=== PATIENT | male | born 1960 | race Two or more races ===

== ENCOUNTER 2017-09-25 01:57 | Inpatient (IN) | payer MEDICARE, MEDICAID ==
[2017-09-25] MEDS ORDERED: Haloperidol Lactate 5 mg/mL 1mL Vial ONE ×2 (02:37→13:33)
[2017-09-25] MEDS ORDERED: Haloperidol Lactate 5 mg/mL 1mL Vial IM STA (02:57)
--- NOTE | 2017-09-25 04:12 | ED Physician Chart ---
ED Chief Complaint/HPI - Patient Information Date Seen:: 09/25/17 Time Seen:: 03:00 History of Present Illness:: Pt sent for agitation, combatant in ER requiring leather restraint as well as rx haldol Allergies:: Allergies Allergy/AdvReac Type Severity Reaction Status Date / Time No Known Allergies Allergy Verified 09/25/17 02:48 Vitals:: Vital Signs - 8 hr 09/25/17 09/25/17 02:20 02:44 Temp 97.6 F 97.6 F HR 88 86 RR 19 18 BP 96/61 96/61 O2 Sat % 97 98 Historian:: EMS, Medical Records Review:: Nurse's Note Reviewed, EMS run form Reviewed, Transfer documents Reviewed, Patient unable to respond ED Review of Systems - Review of Systems General/Constitutional: No fever (unreliable hx) Skin: No skin lesions Head: No headache Eyes: No loss of vision ENT: No earache Neck: No swelling Cardio Vascular: No palpitations, No edema GI: No vomiting Psychiatric: Prior psych history, Auditory hallucination, Visual hallucination ED Past Medical History - Past Medical History Past Medical History: Dementia Psychiatricy History: Schizophrenia, Dementia Family Medical History - Family Member Mother History Unknown: Yes ED Physical Exam - Physical Examination General/Constitutional: Well-developed, well-nourished Head: Atraumatic Eyes: Lids, conjuctiva normal Skin: Nl inspection ENMT: External ears, nose nl Neck: Nontender Respiratory: Nl effort/Exclusion Cardio Vascular: RRR GI: No tenderness/rebounding/guarding : No CVA tenderness Extremities: No edema Misc: Normal back ED Assessment - Assessment General Assessment: acute psychotic break ED Septic Shock - . Is Septic Shock (SBP<90, OR Lactate>4 mmol\L) present?: No - <6hrs of presentation: Vital Signs: Vital Signs - 8 hr 09/25/17 09/25/17 02:20 02:44 Temp 97.6 F 97.6 F HR 88 86 RR 19 18 BP 96/61 96/61 O2 Sat % 97 98 ED Reassessment (Disposition) - Reassessment Reassessment Condition:: Unchanged, Improved - Diagnosis Diagnosis:: psychotic break, admitted to hospital - Patient Disposition Discharge/Transfer:: Acute Care w/in this hosp ED Discharge Plan - Patient Disposition Admit/Discharge/Transfer: Acute Care w/in this hosp Condition at Disposition: Stable
[2017-09-25 05:40] LABS: BASOPHILE ABSOLUTE 0.1 Th/cumm (0-0.2); EOSINOPHILE ABSOLUTE 0.2 Th/cmm (0.1-0.4); MEAN CORPUSCULAR HGB CONC 34.1 pg (28.0-36.0); MONOCYTE ABSOLUTE 0.6 Th/cmm (0.3-1.0)
[2017-09-25 05:42] LABS: % BASOPHILS 0.7 % (0.0-2.0); % EOSINOPHILS 1.9 % (0.0-5.0); % LYMPHOCYTES 24.8 % (20.0-50.0); % MONOCYTES 7.3 % (2.0-10.0); % NEUTROPHILS 65.3 % (40.0-80.0); HEMATOCRIT 39.5 % (41.0-60); HEMOGLOBIN 13.5 gm/dL (12-16); MEAN CELL VOLUME 91.7 fl (80-99); MEAN CORPUSCULAR HEMOGLOBIN 31.2 pg (26.0-30.0); MEAN PLATELET VOLUME 7.3 fl; NEUTROPHILE ABSOLUTE 5.3 Th/cmm (1.8-8.0); PLATELET COUNT 272 Th/cmm (150-400); RED BLOOD COUNT 4.31 Mil/cmm (4.30-5.70); RED CELL DISTRIBUTION WIDTH 13.1 % (11.5-20.0); WHITE BLOOD COUNT 8.2 Th/cmm (4.8-10.8)
[2017-09-25 05:53] LABS: ANION GAP 10.7 (7.0-16.0); BUN - UREA NITROGEN 16 mg/dL (7-25); CALCIUM SERUM 9.7 mg/dL (8.6-10.3); CARBON DIOXIDE 28.5 mEq/L (21.0-31.0); CHLORIDE 106 mEq/L (98-107); CREATININE - SERUM 0.8 mg/dL (0.7-1.3); GFR AFRICAN-AMERICAN > 60.0 ml/min (>90); GFR NON AFRICAN-AMERICAN > 60.0 ml/min; GLUCOSE 90 mg/dL (70-105); POTASSIUM SERUM 4.2 mEq/L (3.5-5.1); SODIUM SERUM 141 mEq/L (136-145)
--- NOTE | 2017-09-25 12:37 | History and Physical ---
History of Present Illness - HPI Chief Complaint: Increased in agitation HPI: Patient was send from SNF due that became agitated Vital Signs: Last Vital Signs Temp 98.3 F 09/25/17 10:17 Pulse 79 09/25/17 10:17 Resp 16 09/25/17 10:17 BP 138/85 09/25/17 10:17 Pulse Ox 97 09/25/17 10:17 Past Medical History Cardiovascular: Report: CAD Pulmonary: Report: No Pertinent Hx [employer]: Report: No Pertinent Hx, Dementia GI: Report: No Pertinent Hx Psych: Report: No Pertinent Hx, Schizophrenia Musculoskeletal: Report: Weakness Infectious Disease: Report: No Pertinent Hx Renal/: Report: No Pertinent Hx Endocrine: Report: No Pertinent Hx Dermatology: Report: No Pertinent Hx - Past Surgical History Past Surgical History: No pertinent Hx Family Medical History - Family Member Mother History Unknown: Yes Social History Smoke: No Alcohol: None Drugs: None Lives: [facility] Domestic Violence: Negative - Medications Home Medications: Home Medication Medication Instructions Recorded Type Atorvastatin Calcium [Lipitor] 20 mg PO HS 09/25/[address] [Depakote DR] 500 mg PO BID 09/25/17 History Nicotine 14 mg/24 hr [Nicotine 1 patch TD DAILY 09/25/17 History Transdermal System] OLANZapine [ZyPREXA] 5 mg PO HS 09/25/17 History Tamsulosin [Flomax] 1 cap PO DAILY 09/25/17 History Temazepam [Restoril] 1 cap PO DAILY 09/25/17 History - Allergies Allergies/Adverse Reactions: Allergies Allergy/AdvReac Type Severity Reaction Status Date / Time No Known Allergies Allergy Verified 09/25/17 02:48 Review of Systems - Review of Systems Constitutional: Report: No Significant Eyes: Report: No Significant ENT: Report: No Significant Respiratory: Report: No Significant Cardiovascular: Report: No Significant Gastrointestinal: Report: No Significant Genitourinary: Report: No Significant Musculoskeletal: Report: No Significant Skin: Report: No Significant Neurological: Report: Weakness, Other (Non ambulatory) Physical Exam - Physical Exam HEENT: Report: Ears Nose Throat within normal limits Neck: Report: Within normal limits Cardiovascular Systems: Report: Regular, Rate and Rhythm Respiratory: Report: Breath Sounds are within normal limits Abdomen: Report: Non-tender to palpation Back: Report: Inspection of back is within normal limits. Extremities: Report: Non-tender to palpation., Other (Non Ambulatory) Skin: Report: Color of skin is within normal limits, Warm, Dry Neuro/Psych: Report: Disoriented to name time or place, Other (Confuse, not following vervbal commands. ) - Assessment Assessment: Patient is awake, confused, non following verbal commands. Dx: increased in agitation, Schizophrenia, muscle weakness. - Plan Plan: Patient is under Psychiatric care. Will continue SNF meds. Labs are requested.
[2017-09-25] MEDS ORDERED: Haloperidol Lactate 5 mg/mL 1mL Vial IM ONE (13:33)
[2017-09-25] MEDS: Nicotine 14 mg/24 hr Tdm TD SCH (14:52)
[2017-09-25] MEDS ORDERED: Magnesium Hydroxide (MOM) 30 mL UDC PO PRN (16:38)
[2017-09-25] MEDS: Lactulose 10 Gm/15 mL 30mL UDC PO SCH (18:09)
--- NOTE | 2017-09-25 19:07 | Psychosocial Evaluation ---
DATE OF SERVICE: 09/25/2017 IDENTIFYING DATA: The patient is a 57-year-old male, resident of a senior care facility. Information obtained by directly interviewing the patient as well as reviewing the admission papers. The patient has been admitted here on a voluntary basis in view of his acute agitation, screaming, and yelling. The patient could not be interviewed. The patient at the time of the hospitalization has been on Depakote and Zyprexa and I have decided to change the Zyprexa to 5 mg twice a day and Depakote 500 mg twice a day. The patient has been getting easily agitated and any intervention we need to medicate the patient to get anything done. The patient at this time has been having difficult time to cope with the stress. The patient is very agitated. PAST PSYCHIATRIC HISTORY: Details are not known. MEDICAL HISTORY: Physical examination is requested to be done by Dr. Hodges. SUBSTANCE ABUSE HISTORY: None. PHYSICAL OR SEXUAL ABUSE HISTORY: None. LEGAL PROBLEMS: None. STRENGTH AND ASSETS: The patient seems to be in good physical health. MENTAL STATUS EXAMINATION: The patient is a 57-year-old, looking his stated age, superficially cooperative. Eye contact is poor. Mood is irritable. Affect is constricted. Insight and judgment at this time are very much impaired. The patient has been having difficult time to cope with the stress. The patient is insisting on having his way. DIAGNOSTIC IMPRESSION: AXIS I: A. Psychosis, not otherwise specified. B. Rule out schizoaffective disorder. AXIS II: None. AXIS III: None. IMMEDIATE TREATMENT PLAN: The patient is going to be observed on inpatient unit, provided with supportive psychotherapy. Once stabilized, the patient is going to be discharged to [facility] to be followed up on an outpatient basis. JOB# [id number]
[2017-09-25] MEDS: Atorvastatin Calcium 10 MG TAB PO SCH (21:29)
--- NOTE | 2017-09-26 12:25 | General Progress Note ---
Subjective - Review of Systems Service Date: 09/26/17 Subjective: Patient is confused Objective - Results Result Diagrams: 09/25/17 05:22 09/25/17 05:22 Recent Labs: Laboratory Last Values WBC 8.2 Th/cmm (4.8-10.8) 09/25/17 05:22 RBC 4.31 Mil/cmm (4.30-5.70) 09/25/17 05:22 Hgb 13.5 gm/dL (12-16) 09/25/17 05:22 Hct 39.5 % (41.0-60) L 09/25/17 05:22 MCV 91.7 fl (80-99) 09/25/17 05:22 MCH 31.2 pg (26.0-30.0) H 09/25/17 05:22 MCHC Differential 34.1 pg (28.0-36.0) 09/25/17 05:22 RDW 13.1 % (11.5-20.0) 09/25/17 05:22 Plt Count 272 Th/cmm (150-400) 09/25/17 05:22 MPV 7.3 fl 09/25/17 05:22 Neutrophils % 65.3 % (40.0-80.0) 09/25/17 05:22 Lymphocytes % 24.8 % (20.0-50.0) 09/25/17 05:22 Monocytes % 7.3 % (2.0-10.0) 09/25/17 05:22 Eosinophils % 1.9 % (0.0-5.0) 09/25/17 05:22 Basophils % 0.7 % (0.0-2.0) 09/25/17 05:22 Sodium 141 mEq/L (136-145) 09/25/17 05:22 Potassium 4.2 mEq/L (3.5-5.1) 09/25/17 05:22 Chloride 106 mEq/L (98-107) 09/25/17 05:22 Carbon Dioxide 28.5 mEq/L (21.0-31.0) 09/25/17 05:22 Anion Gap 10.7 (7.0-16.0) 09/25/17 05:22 BUN 16 mg/dL (7-25) 09/25/17 05:22 Creatinine 0.8 mg/dL (0.7-1.3) 09/25/17 05:22 Est GFR ( Amer) > 60.0 ml/min (>90) 09/25/17 05:22 Est GFR (Non-Af Amer) > 60.0 ml/min 09/25/17 05:22 BUN/Creatinine Ratio 20.0 09/25/17 05:22 Glucose 90 mg/dL (70-105) 09/25/17 05:22 Calcium 9.7 mg/dL (8.6-10.3) 09/25/17 05:22 Ammonia 71 umol/L (16-53) H 09/25/17 05:22 TSH 5.30 uIU/ml (0.34-5.60) 09/25/17 05:22 Valproic Acid 85.4 ug/mL (50.0-100.0) 09/25/17 05:22 - Physical Exam Vitals and I&O: Vital Signs Temp 98.3 F 09/25/17 10:17 Pulse 79 09/25/17 10:17 Resp 16 09/25/17 10:17 BP 138/85 09/25/17 10:17 Pulse Ox 97 09/25/17 10:17 Active Medications: Current Medications Acetaminophen (Tylenol) 650 mg PO Q4HR PRN PRN Reason: Mild Pain / Temp above 100 Stop: 11/24/17 16:37 Atorvastatin Calcium (Lipitor) 20 mg PO HS [facility] Stop: 11/24/17 20:59 Last Admin: 09/25/17 21:29 Dose: Not Given Divalproex Sodium (Depakote Dr) 500 mg PO BID [facility] PRN Reason: Protocol Stop: 11/24/17 16:59 Last Admin: 09/25/17 18:09 Dose: Not Given Lactulose (Cephulac) 20 gm PO BID [facility] Stop: 11/24/17 16:59 Last Admin: 09/25/17 18:09 Dose: Not Given Lorazepam (Ativan) 0.5 mg PO Q4HR PRN; Protocol PRN Reason: Anxiety Stop: 10/25/17 16:37 Magnesium Hydroxide (Milk Of Magnesia) 30 ml PO HS PRN PRN Reason: Constipation Multivitamins/Vitamin C (Theragran) 1 tab PO DAILY [facility] Stop: 11/25/17 08:59 Nicotine (Nicotine Transdermal System) 14 mg TD DAILY [facility] Stop: 11/24/17 13:59 Last Admin: 09/25/17 14:52 Dose: Not Given Olanzapine (Zyprexa) 5 mg PO BID [facility] PRN Reason: Protocol Stop: 11/24/17 16:59 Last Admin: 09/25/17 18:09 Dose: Not Given Tamsulosin HCl (Flomax) 0.4 mg PO DAILY [facility] Stop: 11/24/17 13:59 Last Admin: 09/25/17 14:52 Dose: Not Given Temazepam (Restoril) 30 mg PO HS [facility] Stop: 11/25/17 20:59 Zolpidem Tartrate (Ambien) 5 mg PO HS PRN PRN Reason: Insomnia Stop: 11/24/17 16:37 General: Alert, Other (Confused, not oriented) HEENT: Atraumatic Neck: Supple Cardiovascular: Regular rate Lungs: Clear to auscultation Abdomen: Bowel sounds Extremities: Other (No edema) Neurological: Normal gait Skin: Other (Warm and dry) Psych/Mental Status: Other (Patient is awake, alert, confused, not oriented) Assessment/Plan - Assessment Assessment: Patient is awake, confused, non following verbal commands. Ammonia level is increased, patient is refusing all meds. Dx: increased in agitation, Schizophrenia, muscle weakness. - Plan Plan: Patient is under Psychiatric care. Will continue SNF meds. Will continue to monitor.
[2017-09-26] MEDS: Lactulose 10 Gm/15 mL 30mL UDC PO SCH ×2 (12:37→17:50)
[2017-09-26] MEDS: Multivitamin Tab PO SCH (16:17)
[2017-09-26] MEDS: Nicotine 14 mg/24 hr Tdm TD SCH (16:17)
--- NOTE | 2017-09-26 19:16 | Progress Notes ---
DATE: 09/26/2017 PSYCHIATRIC PROGRESS NOTE TIME PATIENT IDENTIFICATION SUBJECTIVE: Staff was spoken to. The patient is interviewed. Mood is noted to be irritable. Affect is constricted. The patient is very confused and pacing most of the time. The patient is acting very bizarre. The patient has been reluctant to comply with the medications. The patient's ammonia level is noted to be 71 and the patient has been advised to comply with the medication. The patient has been out of the lactulose, but the patient is refusing to take the medication. ASSESSMENT: The patient is grossly psychotic. PLAN: To continue the patient with the supportive therapy. Encouraged the patient to verbalize the concerns rather than to act out. [facility]# [id number]
[2017-09-26] MEDS: Atorvastatin Calcium 10 MG TAB PO SCH (21:09)
[2017-09-27] MEDS: Nicotine 14 mg/24 hr Tdm TD SCH (08:13)
[2017-09-27] MEDS: Multivitamin Tab PO SCH (08:13)
[2017-09-27] MEDS: Lactulose 10 Gm/15 mL 30mL UDC PO SCH ×2 (08:13→17:41)
--- NOTE | 2017-09-27 09:40 | General Progress Note ---
Subjective - Review of Systems Service Date: 09/27/17 Subjective: Patient is confused Objective - Results Result Diagrams: 09/25/17 05:22 09/25/17 05:22 Recent Labs: Laboratory Last Values WBC 8.2 Th/cmm (4.8-10.8) 09/25/17 05:22 RBC 4.31 Mil/cmm (4.30-5.70) 09/25/17 05:22 Hgb 13.5 gm/dL (12-16) 09/25/17 05:22 Hct 39.5 % (41.0-60) L 09/25/17 05:22 MCV 91.7 fl (80-99) 09/25/17 05:22 MCH 31.2 pg (26.0-30.0) H 09/25/17 05:22 MCHC Differential 34.1 pg (28.0-36.0) 09/25/17 05:22 RDW 13.1 % (11.5-20.0) 09/25/17 05:22 Plt Count 272 Th/cmm (150-400) 09/25/17 05:22 MPV 7.3 fl 09/25/17 05:22 Neutrophils % 65.3 % (40.0-80.0) 09/25/17 05:22 Lymphocytes % 24.8 % (20.0-50.0) 09/25/17 05:22 Monocytes % 7.3 % (2.0-10.0) 09/25/17 05:22 Eosinophils % 1.9 % (0.0-5.0) 09/25/17 05:22 Basophils % 0.7 % (0.0-2.0) 09/25/17 05:22 Sodium 141 mEq/L (136-145) 09/25/17 05:22 Potassium 4.2 mEq/L (3.5-5.1) 09/25/17 05:22 Chloride 106 mEq/L (98-107) 09/25/17 05:22 Carbon Dioxide 28.5 mEq/L (21.0-31.0) 09/25/17 05:22 Anion Gap 10.7 (7.0-16.0) 09/25/17 05:22 BUN 16 mg/dL (7-25) 09/25/17 05:22 Creatinine 0.8 mg/dL (0.7-1.3) 09/25/17 05:22 Est GFR ( Amer) > 60.0 ml/min (>90) 09/25/17 05:22 Est GFR (Non-Af Amer) > 60.0 ml/min 09/25/17 05:22 BUN/Creatinine Ratio 20.0 09/25/17 05:22 Glucose 90 mg/dL (70-105) 09/25/17 05:22 Calcium 9.7 mg/dL (8.6-10.3) 09/25/17 05:22 Ammonia 71 umol/L (16-53) H 09/25/17 05:22 TSH 5.30 uIU/ml (0.34-5.60) 09/25/17 05:22 Valproic Acid 85.4 ug/mL (50.0-100.0) 09/25/17 05:22 - Physical Exam Vitals and I&O: Vital Signs Temp 98.2 F 09/27/17 06:10 Pulse 76 09/27/17 06:10 Resp 19 09/27/17 06:10 BP 129/76 09/27/17 06:10 Pulse Ox 98 09/27/17 06:10 Intake & Output 09/26/17 09/27/17 09/27/17 18:59 06:59 18:59 Intake Total 1600 120 Balance 1600 120 Intake: Oral 1600 120 Other: # Voids 4 3 # Bowel Movements 0 Active Medications: Current Medications Acetaminophen (Tylenol) 650 mg PO Q4HR PRN PRN Reason: Mild Pain / Temp above 100 Stop: 11/24/17 16:37 Atorvastatin Calcium (Lipitor) 20 mg PO HS [facility] Stop: 11/24/17 20:59 Last Admin: 09/26/17 21:09 Dose: 20 mg Divalproex Sodium (Depakote Dr) 500 mg PO BID [facility] PRN Reason: Protocol Stop: 11/24/17 16:59 Last Admin: 09/27/17 08:13 Dose: 500 mg Lactulose (Cephulac) 20 gm PO BID [facility] Stop: 11/24/17 16:59 Last Admin: 09/27/17 08:13 Dose: 20 gm Lorazepam (Ativan) 0.5 mg PO Q4HR PRN; Protocol PRN Reason: Anxiety Stop: 10/25/17 16:37 Magnesium Hydroxide (Milk Of Magnesia) 30 ml PO HS PRN PRN Reason: Constipation Multivitamins/Vitamin C (Theragran) 1 tab PO DAILY [facility] Stop: 11/25/17 08:59 Last Admin: 09/27/17 08:13 Dose: 1 tab Nicotine (Nicotine Transdermal System) 14 mg TD DAILY [facility] Stop: 11/24/17 13:59 Last Admin: 09/27/17 08:13 Dose: Not Given Olanzapine (Zyprexa) 5 mg PO BID [facility] PRN Reason: Protocol Stop: 11/24/17 16:59 Last Admin: 09/27/17 08:14 Dose: 5 mg Tamsulosin HCl (Flomax) 0.4 mg PO DAILY [facility] Stop: 11/24/17 13:59 Last Admin: 09/27/17 08:13 Dose: 0.4 mg Temazepam (Restoril) 30 mg PO HS [facility] Stop: 11/25/17 20:59 Last Admin: 09/26/17 21:08 Dose: 30 mg Zolpidem Tartrate (Ambien) 5 mg PO HS PRN PRN Reason: Insomnia Stop: 11/24/17 16:37 General: Alert, Other (Confused, not oriented) HEENT: Atraumatic Neck: Supple Cardiovascular: Regular rate Lungs: Clear to auscultation Abdomen: Bowel sounds Extremities: Other (No edema) Neurological: Normal gait Skin: Other (Warm and dry) Psych/Mental Status: Other (Patient is awake, alert, confused, not oriented) Assessment/Plan - Assessment Assessment: Patient is awake, confused, non following verbal commands. Ammonia level is increased, patient took his meds today. Dx: increased in agitation, Schizophrenia, muscle weakness. - Plan Plan: Patient is under Psychiatric care. Will continue SNF meds. Will continue to monitor.
[2017-09-27] MEDS: Atorvastatin Calcium 10 MG TAB PO SCH (20:47)
--- NOTE | 2017-09-28 02:57 | Progress Notes ---
DATE: 09/27/2017 PSYCHIATRIC PROGRESS NOTE Staff has spoken to patient. The patient is interviewed. Mood is irritable. Family is spoken to. The patient is still very irritable and angry. The patient's coping skills are noted to be very poor. The patient needs to be redirected and has to be restrained to the GD chair because the patient has been very disruptive. The patient's family has been spoken to. The patient's has been mentioning that since 2012, it has been becoming a major problem with the aggressive behavior. does not want any of the Ativan to be given because that makes him to be agitated. The patient at this time has been having a difficult time to cope with the stress. No side effects to the medications are noted. The patient's ammonia level is coming high and hence I have decided to discontinue the Depakote and then start the patient on Trileptal which is going to be given at 150 mg twice a day and the patient is going to be followed up with the supportive therapy. The patient is scheduled for a repeat of the ammonia level tomorrow morning. ASSESSMENT: The patient is still impulsive and psychotic. PLAN: To continue the patient with supportive therapy, encouraged the patient to verbalize the concerns rather than to act out. The patient is going to be closely monitored with these medications. JOB# [id number]
--- NOTE | 2017-09-28 03:03 | Progress Notes ---
DATE: 09/27/2017 Please note that the patient's family does not want the patient to be on Ativan and hence it has been discontinued. [facility]# [id number]
[2017-09-28 06:58] LABS: % BASOPHILS 0.3 % (0.0-2.0); % EOSINOPHILS 2.8 % (0.0-5.0); % LYMPHOCYTES 26.6 % (20.0-50.0); % MONOCYTES 9.2 % (2.0-10.0); % NEUTROPHILS 61.1 % (40.0-80.0); EOSINOPHILE ABSOLUTE 0.2 Th/cmm (0.1-0.4); HEMATOCRIT 37.8 % (41.0-60); HEMOGLOBIN 12.7 gm/dL (12-16); LYMPHOCYTE ABSOLUTE 1.7 Th/cmm (1.5-3.0); MEAN CELL VOLUME 93.4 fl (80-99); MEAN CORPUSCULAR HEMOGLOBIN 31.4 pg (26.0-30.0); MEAN CORPUSCULAR HGB CONC 33.6 pg (28.0-36.0); MEAN PLATELET VOLUME 6.9 fl; MONOCYTE ABSOLUTE 0.6 Th/cmm (0.3-1.0); NEUTROPHILE ABSOLUTE 3.8 Th/cmm (1.8-8.0); PLATELET COUNT 249 Th/cmm (150-400); RED BLOOD COUNT 4.05 Mil/cmm (4.30-5.70); RED CELL DISTRIBUTION WIDTH 13.6 % (11.5-20.0)
[2017-09-28 07:00] LABS: WHITE BLOOD COUNT 6.3 Th/cmm (4.8-10.8)
[2017-09-28 07:16] LABS: ALB/GLOB RATIO 1.5 (1.0-1.8); ALKALINE PHOSPHATASE 84 U/L (34-104); ANION GAP 7.7 (7.0-16.0); BILIRUBIN,TOTAL 0.6 mg/dL (0.3-1.0); BUN - UREA NITROGEN 24 mg/dL (7-25); CALCIUM SERUM 9.4 mg/dL (8.6-10.3); CARBON DIOXIDE 31.4 mEq/L (21.0-31.0); CHLORIDE 104 mEq/L (98-107); CREATININE - SERUM 0.7 mg/dL (0.7-1.3); GFR AFRICAN-AMERICAN > 60.0 ml/min (>90); GFR NON AFRICAN-AMERICAN > 60.0 ml/min; GLUCOSE 73 mg/dL (70-105); POTASSIUM SERUM 4.1 mEq/L (3.5-5.1); SGOT 31 U/L (13-39); SGPT/ALT 28 U/L (7-52); SODIUM SERUM 139 mEq/L (136-145); TOTAL PROTEIN,SERUM 6.6 gm/dL (6.0-8.3)
[2017-09-28] MEDS: Lactulose 10 Gm/15 mL 30mL UDC PO SCH ×2 (08:17→17:01)
[2017-09-28] MEDS: Nicotine 14 mg/24 hr Tdm TD SCH (08:18)
[2017-09-28] MEDS: Multivitamin Tab PO SCH (08:18)
--- NOTE | 2017-09-28 09:19 | General Progress Note ---
Subjective - Review of Systems Service Date: 09/28/17 Subjective: Patient is awake, confused, but responding question. Objective - Results Result Diagrams: 09/28/17 06:35 09/28/17 06:35 Recent Labs: Laboratory Last Values WBC 6.3 Th/cmm (4.8-10.8) D 09/28/17 06:35 RBC 4.05 Mil/cmm (4.30-5.70) L 09/28/17 06:35 Hgb 12.7 gm/dL (12-16) 09/28/17 06:35 Hct 37.8 % (41.0-60) L 09/28/17 06:35 MCV 93.4 fl (80-99) 09/28/17 06:35 MCH 31.4 pg (26.0-30.0) H 09/28/17 06:35 MCHC Differential 33.6 pg (28.0-36.0) 09/28/17 06:35 RDW 13.6 % (11.5-20.0) 09/28/17 06:35 Plt Count 249 Th/cmm (150-400) 09/28/17 06:35 MPV 6.9 fl 09/28/17 06:35 Neutrophils % 61.1 % (40.0-80.0) 09/28/17 06:35 Lymphocytes % 26.6 % (20.0-50.0) 09/28/17 06:35 Monocytes % 9.2 % (2.0-10.0) 09/28/17 06:35 Eosinophils % 2.8 % (0.0-5.0) 09/28/17 06:35 Basophils % 0.3 % (0.0-2.0) 09/28/17 06:35 Sodium 139 mEq/L (136-145) 09/28/17 06:35 Potassium 4.1 mEq/L (3.5-5.1) 09/28/17 06:35 Chloride 104 mEq/L (98-107) 09/28/17 06:35 Carbon Dioxide 31.4 mEq/L (21.0-31.0) H 09/28/17 06:35 Anion Gap 7.7 (7.0-16.0) 09/28/17 06:35 BUN 24 mg/dL (7-25) 09/28/17 06:35 Creatinine 0.7 mg/dL (0.7-1.3) 09/28/17 06:35 Est GFR ( Amer) > 60.0 ml/min (>90) 09/28/17 06:35 Est GFR (Non-Af Amer) > 60.0 ml/min 09/28/17 06:35 BUN/Creatinine Ratio 34.3 09/28/17 06:35 Glucose 73 mg/dL (70-105) 09/28/17 06:35 Calcium 9.4 mg/dL (8.6-10.3) 09/28/17 06:35 Total Bilirubin 0.6 mg/dL (0.3-1.0) 09/28/17 06:35 AST 31 U/L (13-39) 09/28/17 06:35 ALT 28 U/L (7-52) 09/28/17 06:35 Alkaline Phosphatase 84 U/L (34-104) 09/28/17 06:35 Ammonia 43 umol/L (16-53) 09/28/17 06:35 Total Protein 6.6 gm/dL (6.0-8.3) 09/28/17 06:35 Albumin 4.0 gm/dL (4.2-5.5) L 09/28/17 06:35 Globulin 2.6 gm/dL 09/28/17 06:35 Albumin/Globulin Ratio 1.5 (1.0-1.8) 09/28/17 06:35 TSH 5.30 uIU/ml (0.34-5.60) 09/25/17 05:22 Valproic Acid 85.4 ug/mL (50.0-100.0) 09/25/17 05:22 - Physical Exam Vitals and I&O: Vital Signs Temp 97.2 F 09/27/17 17:07 Pulse 60 09/27/17 17:07 Resp 18 09/27/17 17:07 BP 122/64 09/27/17 17:07 Pulse Ox 98 09/27/17 17:07 Intake & Output 09/27/17 09/28/17 09/28/17 18:59 06:59 18:59 Intake Total 850 Balance 850 Intake: Oral 850 Other: # Voids 4 # Bowel Movements 0 Active Medications: Current Medications Acetaminophen (Tylenol) 650 mg PO Q4HR PRN PRN Reason: Mild Pain / Temp above 100 Stop: 11/24/17 16:37 Atorvastatin Calcium (Lipitor) 20 mg PO HS [facility] Stop: 11/24/17 20:59 Last Admin: 09/27/17 20:47 Dose: 20 mg Lactulose (Cephulac) 20 gm PO BID [facility] Stop: 11/24/17 16:59 Last Admin: 09/28/17 08:17 Dose: 20 gm Magnesium Hydroxide (Milk Of Magnesia) 30 ml PO HS PRN PRN Reason: Constipation Multivitamins/Vitamin C (Theragran) 1 tab PO DAILY [facility] Stop: 11/25/17 08:59 Last Admin: 09/28/17 08:18 Dose: 1 tab Nicotine (Nicotine Transdermal System) 14 mg TD DAILY [facility] Stop: 11/24/17 13:59 Last Admin: 09/28/17 08:18 Dose: Not Given Olanzapine (Zyprexa) 5 mg PO BID [facility] PRN Reason: Protocol Stop: 11/24/17 16:59 Last Admin: 09/28/17 08:18 Dose: 5 mg Oxcarbazepine (Trileptal) 150 mg PO BID [facility] PRN Reason: Protocol Stop: 11/27/17 08:59 Last Admin: 09/28/17 08:18 Dose: 150 mg Tamsulosin HCl (Flomax) 0.4 mg PO DAILY [facility] Stop: 11/24/17 13:59 Last Admin: 09/28/17 08:18 Dose: 0.4 mg Temazepam (Restoril) 30 mg PO HS [facility] Stop: 11/25/17 20:59 Last Admin: 09/27/17 20:47 Dose: 30 mg Zolpidem Tartrate (Ambien) 5 mg PO HS PRN PRN Reason: Insomnia Stop: 11/24/17 16:37 General: Alert, Other (Confused, not oriented) HEENT: Atraumatic Neck: Supple Cardiovascular: Regular rate Lungs: Clear to auscultation Abdomen: Bowel sounds Extremities: Other (No edema) Neurological: Normal gait Skin: Other (Warm and dry) Psych/Mental Status: Other (Patient is awake, alert, confused, not oriented) Assessment/Plan - Assessment Assessment: Patient is awake, confused, following verbal commands. Ammonia level is normal. Patient took his meds today. Dx: increased in agitation, Schizophrenia, muscle weakness. - Plan Plan: Patient is under Psychiatric care. Will continue SNF meds. Will continue to monitor.
[2017-09-28] MEDS: Atorvastatin Calcium 10 MG TAB PO SCH (20:48)
--- NOTE | 2017-09-28 20:48 | Progress Notes ---
DATE: 09/28/2017 SUBJECTIVE: Staff was spoken to. The patient is interviewed. Mood is noted to be less irritable. Affect is appropriate. The patient's insight and judgment at this time are noted to be still impaired. Impulse control is noted to be poor. The patient is being closely monitored. His valproic acid level before was noted to be 85.4. In view of the high ammonia level, it is decided to discontinue the valproic acid and start the patient on Trileptal. The patient has been able to tolerate the medication at this time. No side effects to the medications are noted at this time. ASSESSMENT: The patient is still impulsive. PLAN: To continue the patient with the supportive therapy and follow up on the ammonia level. The ammonia level came back to 43. JOB# [id number]
--- NOTE | 2017-09-29 09:11 | General Progress Note ---
Subjective - Review of Systems Service Date: 09/29/17 Subjective: Patient is awake, confused, but responding question. Objective - Results Result Diagrams: 09/28/17 06:35 09/28/17 06:35 Recent Labs: Laboratory Last Values WBC 6.3 Th/cmm (4.8-10.8) D 09/28/17 06:35 RBC 4.05 Mil/cmm (4.30-5.70) L 09/28/17 06:35 Hgb 12.7 gm/dL (12-16) 09/28/17 06:35 Hct 37.8 % (41.0-60) L 09/28/17 06:35 MCV 93.4 fl (80-99) 09/28/17 06:35 MCH 31.4 pg (26.0-30.0) H 09/28/17 06:35 MCHC Differential 33.6 pg (28.0-36.0) 09/28/17 06:35 RDW 13.6 % (11.5-20.0) 09/28/17 06:35 Plt Count 249 Th/cmm (150-400) 09/28/17 06:35 MPV 6.9 fl 09/28/17 06:35 Neutrophils % 61.1 % (40.0-80.0) 09/28/17 06:35 Lymphocytes % 26.6 % (20.0-50.0) 09/28/17 06:35 Monocytes % 9.2 % (2.0-10.0) 09/28/17 06:35 Eosinophils % 2.8 % (0.0-5.0) 09/28/17 06:35 Basophils % 0.3 % (0.0-2.0) 09/28/17 06:35 Sodium 139 mEq/L (136-145) 09/28/17 06:35 Potassium 4.1 mEq/L (3.5-5.1) 09/28/17 06:35 Chloride 104 mEq/L (98-107) 09/28/17 06:35 Carbon Dioxide 31.4 mEq/L (21.0-31.0) H 09/28/17 06:35 Anion Gap 7.7 (7.0-16.0) 09/28/17 06:35 BUN 24 mg/dL (7-25) 09/28/17 06:35 Creatinine 0.7 mg/dL (0.7-1.3) 09/28/17 06:35 Est GFR ( Amer) > 60.0 ml/min (>90) 09/28/17 06:35 Est GFR (Non-Af Amer) > 60.0 ml/min 09/28/17 06:35 BUN/Creatinine Ratio 34.3 09/28/17 06:35 Glucose 73 mg/dL (70-105) 09/28/17 06:35 Calcium 9.4 mg/dL (8.6-10.3) 09/28/17 06:35 Total Bilirubin 0.6 mg/dL (0.3-1.0) 09/28/17 06:35 AST 31 U/L (13-39) 09/28/17 06:35 ALT 28 U/L (7-52) 09/28/17 06:35 Alkaline Phosphatase 84 U/L (34-104) 09/28/17 06:35 Ammonia 43 umol/L (16-53) 09/28/17 06:35 Total Protein 6.6 gm/dL (6.0-8.3) 09/28/17 06:35 Albumin 4.0 gm/dL (4.2-5.5) L 09/28/17 06:35 Globulin 2.6 gm/dL 09/28/17 06:35 Albumin/Globulin Ratio 1.5 (1.0-1.8) 09/28/17 06:35 TSH 5.30 uIU/ml (0.34-5.60) 09/25/17 05:22 Valproic Acid 85.4 ug/mL (50.0-100.0) 09/25/17 05:22 - Physical Exam Vitals and I&O: Vital Signs Temp 98.4 F 09/29/17 08:27 Pulse 76 09/29/17 08:27 Resp 19 09/29/17 08:27 BP 128/75 09/29/17 08:27 Pulse Ox 98 09/29/17 08:27 Intake & Output 09/28/17 09/29/17 09/29/17 18:59 06:59 18:59 Intake Total 950 240 480 Balance 950 240 480 Intake: Oral 950 240 480 Other: # Voids 5 1 2 # Bowel Movements 0 0 Active Medications: Current Medications Acetaminophen (Tylenol) 650 mg PO Q4HR PRN PRN Reason: Mild Pain / Temp above 100 Stop: 11/24/17 16:37 Atorvastatin Calcium (Lipitor) 20 mg PO HS [facility] Stop: 11/24/17 20:59 Last Admin: 09/28/17 20:48 Dose: 20 mg Magnesium Hydroxide (Milk Of Magnesia) 30 ml PO HS PRN PRN Reason: Constipation Multivitamins/Vitamin C (Theragran) 1 tab PO DAILY [facility] Stop: 11/25/17 08:59 Last Admin: 09/28/17 08:18 Dose: 1 tab Nicotine (Nicotine Transdermal System) 14 mg TD DAILY [facility] Stop: 11/24/17 13:59 Last Admin: 09/28/17 08:18 Dose: Not Given Nicotine (Nicotine Transdermal System) 7 mg TD DAILY [facility] Stop: 11/29/17 08:59 Olanzapine (Zyprexa) 5 mg PO BID [facility] PRN Reason: Protocol Stop: 11/24/17 16:59 Last Admin: 09/28/17 17:01 Dose: 5 mg Oxcarbazepine (Trileptal) 150 mg PO BID [facility] PRN Reason: Protocol Stop: 11/27/17 08:59 Last Admin: 09/28/17 17:01 Dose: 150 mg Tamsulosin HCl (Flomax) 0.4 mg PO DAILY [facility] Stop: 11/24/17 13:59 Last Admin: 09/28/17 08:18 Dose: 0.4 mg Temazepam (Restoril) 30 mg PO HS [facility] Stop: 11/25/17 20:59 Last Admin: 09/28/17 20:48 Dose: 30 mg Zolpidem Tartrate (Ambien) 5 mg PO HS PRN PRN Reason: Insomnia Stop: 11/24/17 16:37 General: Alert, Other (Confused, not oriented) HEENT: Atraumatic Neck: Supple Cardiovascular: Regular rate Lungs: Clear to auscultation Abdomen: Bowel sounds Extremities: Other (No edema) Neurological: Normal gait Skin: Other (Warm and dry) Psych/Mental Status: Other (Patient is awake, alert, confused, not oriented) Assessment/Plan - Assessment Assessment: Patient is awake, confused, following verbal commands. Ammonia level is normal. Patient took his meds today. Dx: increased in agitation, Schizophrenia, muscle weakness. - Plan Plan: Patient is under Psychiatric care. Will continue SNF meds. Will continue to monitor.
[2017-09-29] MEDS: Multivitamin Tab PO SCH (11:05)
[2017-09-29] MEDS: Nicotine 14 mg/24 hr Tdm TD SCH (11:15)
[2017-09-29] MEDS ORDERED: Haloperidol Lactate 5 mg/mL 1mL Vial IM ONE (19:02)
[2017-09-29] MEDS ORDERED: Haloperidol Lactate 5 mg/mL 1mL Vial ONE (19:04)
[2017-09-29] MEDS: Atorvastatin Calcium 10 MG TAB PO SCH (20:34)
--- NOTE | 2017-09-30 00:32 | Progress Notes ---
DATE: 09/29/2017 SUBJECTIVE: Staff was spoken to. The patient is interviewed. Mood is noted to be irritable. Affect is constricted. Insight and judgment noted to be still impaired. The patient is very agitated and has been screaming and yelling and has been trying to get out of the Gd chair. PLAN: The patient needs to be given a dose of Haldol and Benadryl IM. At this time, the patient has no insight into this illness. In view of the aggressive behavior, it is decided to change the Zyprexa to 10 mg twice a day and follow the patient with supportive therapy. JOB# [id number] MTDD
[2017-09-30] MEDS ORDERED: Nicotine 7 mg/24 hr Tdm TD SCH (09:00)
[2017-09-30] MEDS ORDERED: chlorproMAZINE 25 mg/mL 2mL Amp IM STA (10:00)
[2017-09-30] MEDS ORDERED: chlorproMAZINE 25 mg/mL 2mL Amp ONE (10:01)
[2017-09-30] MEDS ORDERED: Haloperidol Lactate 5 mg/mL 1mL Vial IM ONE (10:05)
[2017-09-30] MEDS ORDERED: Haloperidol Lactate 5 mg/mL 1mL Vial ONE (10:05)
--- NOTE | 2017-09-30 11:07 | General Progress Note ---
Subjective - Review of Systems Service Date: 09/30/17 Subjective: Patient is awake, confused, but responding question. Objective - Results Result Diagrams: 09/28/17 06:35 09/28/17 06:35 Recent Labs: Laboratory Last Values WBC 6.3 Th/cmm (4.8-10.8) D 09/28/17 06:35 RBC 4.05 Mil/cmm (4.30-5.70) L 09/28/17 06:35 Hgb 12.7 gm/dL (12-16) 09/28/17 06:35 Hct 37.8 % (41.0-60) L 09/28/17 06:35 MCV 93.4 fl (80-99) 09/28/17 06:35 MCH 31.4 pg (26.0-30.0) H 09/28/17 06:35 MCHC Differential 33.6 pg (28.0-36.0) 09/28/17 06:35 RDW 13.6 % (11.5-20.0) 09/28/17 06:35 Plt Count 249 Th/cmm (150-400) 09/28/17 06:35 MPV 6.9 fl 09/28/17 06:35 Neutrophils % 61.1 % (40.0-80.0) 09/28/17 06:35 Lymphocytes % 26.6 % (20.0-50.0) 09/28/17 06:35 Monocytes % 9.2 % (2.0-10.0) 09/28/17 06:35 Eosinophils % 2.8 % (0.0-5.0) 09/28/17 06:35 Basophils % 0.3 % (0.0-2.0) 09/28/17 06:35 Sodium 139 mEq/L (136-145) 09/28/17 06:35 Potassium 4.1 mEq/L (3.5-5.1) 09/28/17 06:35 Chloride 104 mEq/L (98-107) 09/28/17 06:35 Carbon Dioxide 31.4 mEq/L (21.0-31.0) H 09/28/17 06:35 Anion Gap 7.7 (7.0-16.0) 09/28/17 06:35 BUN 24 mg/dL (7-25) 09/28/17 06:35 Creatinine 0.7 mg/dL (0.7-1.3) 09/28/17 06:35 Est GFR ( Amer) > 60.0 ml/min (>90) 09/28/17 06:35 Est GFR (Non-Af Amer) > 60.0 ml/min 09/28/17 06:35 BUN/Creatinine Ratio 34.3 09/28/17 06:35 Glucose 73 mg/dL (70-105) 09/28/17 06:35 Calcium 9.4 mg/dL (8.6-10.3) 09/28/17 06:35 Total Bilirubin 0.6 mg/dL (0.3-1.0) 09/28/17 06:35 AST 31 U/L (13-39) 09/28/17 06:35 ALT 28 U/L (7-52) 09/28/17 06:35 Alkaline Phosphatase 84 U/L (34-104) 09/28/17 06:35 Ammonia 43 umol/L (16-53) 09/28/17 06:35 Total Protein 6.6 gm/dL (6.0-8.3) 09/28/17 06:35 Albumin 4.0 gm/dL (4.2-5.5) L 09/28/17 06:35 Globulin 2.6 gm/dL 09/28/17 06:35 Albumin/Globulin Ratio 1.5 (1.0-1.8) 09/28/17 06:35 TSH 5.30 uIU/ml (0.34-5.60) 09/25/17 05:22 Valproic Acid 85.4 ug/mL (50.0-100.0) 09/25/17 05:22 - Physical Exam Vitals and I&O: Vital Signs Temp 97.4 F 09/29/17 15:06 Pulse 86 09/29/17 15:06 Resp 20 09/29/17 15:06 BP 100/72 09/29/17 15:06 Pulse Ox 98 09/29/17 15:06 Intake & Output 09/29/17 09/30/17 09/30/17 18:59 06:59 18:59 Intake Total 480 Balance 480 Intake: Oral 480 Other: # Voids 2 # Bowel Movements 0 Active Medications: Current Medications Acetaminophen (Tylenol) 650 mg PO Q4HR PRN PRN Reason: Mild Pain / Temp above 100 Stop: 11/24/17 16:37 Atorvastatin Calcium (Lipitor) 20 mg PO HS [facility] Stop: 11/24/17 20:59 Last Admin: 09/29/17 20:34 Dose: 20 mg Magnesium Hydroxide (Milk Of Magnesia) 30 ml PO HS PRN PRN Reason: Constipation Multivitamins/Vitamin C (Theragran) 1 tab PO DAILY [facility] Stop: 11/25/17 08:59 Last Admin: 09/29/17 11:05 Dose: 1 tab Nicotine (Nicotine Transdermal System) 14 mg TD DAILY [facility] Stop: 11/24/17 13:59 Last Admin: 09/29/17 11:15 Dose: 14 mg Olanzapine (Zyprexa) 10 mg PO BID [facility] PRN Reason: Protocol Stop: 11/24/17 16:59 Oxcarbazepine (Trileptal) 150 mg PO BID [facility] PRN Reason: Protocol Stop: 11/27/17 08:59 Last Admin: 09/29/17 17:44 Dose: 150 mg Tamsulosin HCl (Flomax) 0.4 mg PO DAILY [facility] Stop: 11/24/17 13:59 Last Admin: 09/29/17 11:08 Dose: 0.4 mg Temazepam (Restoril) 30 mg PO HS [facility] Stop: 11/25/17 20:59 Last Admin: 09/29/17 20:34 Dose: 30 mg Zolpidem Tartrate (Ambien) 5 mg PO HS PRN PRN Reason: Insomnia Stop: 11/24/17 16:37 General: Alert, Other (Confused, not oriented) HEENT: Atraumatic Neck: Supple Cardiovascular: Regular rate Lungs: Clear to auscultation Abdomen: Bowel sounds Extremities: Other (No edema) Neurological: Normal gait Skin: Other (Warm and dry) Psych/Mental Status: Other (Patient is awake, alert, confused, not oriented) Assessment/Plan - Assessment Assessment: Patient is awake, confused, following verbal commands. Ammonia level is normal. Patient took his meds today. Dx: increased in agitation, Schizophrenia, muscle weakness. - Plan Plan: Patient is under Psychiatric care. Will continue SNF meds. Will continue to monitor.
--- NOTE | 2017-09-30 11:14 | General Progress Note ---
Subjective - Review of Systems Service Date: 09/30/17 Subjective: Patient is awake, confused, but responding question. She refer rash in both breast. Objective - Results Result Diagrams: 09/28/17 06:35 09/28/17 06:35 Recent Labs: Laboratory Last Values WBC 6.3 Th/cmm (4.8-10.8) D 09/28/17 06:35 RBC 4.05 Mil/cmm (4.30-5.70) L 09/28/17 06:35 Hgb 12.7 gm/dL (12-16) 09/28/17 06:35 Hct 37.8 % (41.0-60) L 09/28/17 06:35 MCV 93.4 fl (80-99) 09/28/17 06:35 MCH 31.4 pg (26.0-30.0) H 09/28/17 06:35 MCHC Differential 33.6 pg (28.0-36.0) 09/28/17 06:35 RDW 13.6 % (11.5-20.0) 09/28/17 06:35 Plt Count 249 Th/cmm (150-400) 09/28/17 06:35 MPV 6.9 fl 09/28/17 06:35 Neutrophils % 61.1 % (40.0-80.0) 09/28/17 06:35 Lymphocytes % 26.6 % (20.0-50.0) 09/28/17 06:35 Monocytes % 9.2 % (2.0-10.0) 09/28/17 06:35 Eosinophils % 2.8 % (0.0-5.0) 09/28/17 06:35 Basophils % 0.3 % (0.0-2.0) 09/28/17 06:35 Sodium 139 mEq/L (136-145) 09/28/17 06:35 Potassium 4.1 mEq/L (3.5-5.1) 09/28/17 06:35 Chloride 104 mEq/L (98-107) 09/28/17 06:35 Carbon Dioxide 31.4 mEq/L (21.0-31.0) H 09/28/17 06:35 Anion Gap 7.7 (7.0-16.0) 09/28/17 06:35 BUN 24 mg/dL (7-25) 09/28/17 06:35 Creatinine 0.7 mg/dL (0.7-1.3) 09/28/17 06:35 Est GFR ( Amer) > 60.0 ml/min (>90) 09/28/17 06:35 Est GFR (Non-Af Amer) > 60.0 ml/min 09/28/17 06:35 BUN/Creatinine Ratio 34.3 09/28/17 06:35 Glucose 73 mg/dL (70-105) 09/28/17 06:35 Calcium 9.4 mg/dL (8.6-10.3) 09/28/17 06:35 Total Bilirubin 0.6 mg/dL (0.3-1.0) 09/28/17 06:35 AST 31 U/L (13-39) 09/28/17 06:35 ALT 28 U/L (7-52) 09/28/17 06:35 Alkaline Phosphatase 84 U/L (34-104) 09/28/17 06:35 Ammonia 43 umol/L (16-53) 09/28/17 06:35 Total Protein 6.6 gm/dL (6.0-8.3) 09/28/17 06:35 Albumin 4.0 gm/dL (4.2-5.5) L 09/28/17 06:35 Globulin 2.6 gm/dL 09/28/17 06:35 Albumin/Globulin Ratio 1.5 (1.0-1.8) 09/28/17 06:35 TSH 5.30 uIU/ml (0.34-5.60) 09/25/17 05:22 Valproic Acid 85.4 ug/mL (50.0-100.0) 09/25/17 05:22 - Physical Exam Vitals and I&O: Vital Signs Temp 97.4 F 09/29/17 15:06 Pulse 86 09/29/17 15:06 Resp 20 09/29/17 15:06 BP 100/72 09/29/17 15:06 Pulse Ox 98 09/29/17 15:06 Intake & Output 09/29/17 09/30/17 09/30/17 18:59 06:59 18:59 Intake Total 480 Balance 480 Intake: Oral 480 Other: # Voids 2 # Bowel Movements 0 Active Medications: Current Medications Acetaminophen (Tylenol) 650 mg PO Q4HR PRN PRN Reason: Mild Pain / Temp above 100 Stop: 11/24/17 16:37 Atorvastatin Calcium (Lipitor) 20 mg PO HS [facility] Stop: 11/24/17 20:59 Last Admin: 09/29/17 20:34 Dose: 20 mg Magnesium Hydroxide (Milk Of Magnesia) 30 ml PO HS PRN PRN Reason: Constipation Multivitamins/Vitamin C (Theragran) 1 tab PO DAILY [facility] Stop: 11/25/17 08:59 Last Admin: 09/29/17 11:05 Dose: 1 tab Nicotine (Nicotine Transdermal System) 14 mg TD DAILY [facility] Stop: 11/24/17 13:59 Last Admin: 09/29/17 11:15 Dose: 14 mg Olanzapine (Zyprexa) 10 mg PO BID [facility] PRN Reason: Protocol Stop: 11/24/17 16:59 Oxcarbazepine (Trileptal) 150 mg PO BID [facility] PRN Reason: Protocol Stop: 11/27/17 08:59 Last Admin: 09/29/17 17:44 Dose: 150 mg Tamsulosin HCl (Flomax) 0.4 mg PO DAILY [facility] Stop: 11/24/17 13:59 Last Admin: 09/29/17 11:08 Dose: 0.4 mg Temazepam (Restoril) 30 mg PO HS [facility] Stop: 11/25/17 20:59 Last Admin: 09/29/17 20:34 Dose: 30 mg Zolpidem Tartrate (Ambien) 5 mg PO HS PRN PRN Reason: Insomnia Stop: 11/24/17 16:37 General: Alert, Other (Confused, not oriented) HEENT: Atraumatic Neck: Supple Cardiovascular: Regular rate Lungs: Clear to auscultation Abdomen: Bowel sounds Extremities: Other (No edema) Neurological: Normal gait Skin: Rash, Other (There is a rash in both breast) Psych/Mental Status: Other (Patient is awake, alert, confused, not oriented) Assessment/Plan - Assessment Assessment: Patient is awake, confused, following verbal commands. Ammonia level is normal. Patient took his meds today. Dx: increased in agitation, Schizophrenia, muscle weakness. - Plan Plan: Patient is under Psychiatric care. Will continue SNF meds. Will continue to monitor.
[2017-09-30] MEDS: Multivitamin Tab PO SCH (13:20)
[2017-09-30] MEDS: Nicotine 14 mg/24 hr Tdm TD SCH (13:21)
[2017-09-30] MEDS: Betamethasone/Clotrimazole Cream 15 gm Tube TP SCH (18:23)
[2017-09-30] MEDS: Atorvastatin Calcium 10 MG TAB PO SCH (21:58)
--- NOTE | 2017-10-01 01:29 | Progress Notes ---
DATE: 09/30/2017 SUBJECTIVE: Staff was spoken to. The patient is interviewed. Mood is noted to be irritable. Affect is constricted. Insight and judgment at this time are noted to be very much impaired. Impulse control is noted to be poor. Coping skills ____ noted to be poor. The patient has been having difficult time to cope with the stress. The patient has been out of control and the patient has been trying to get out of the group and has been becoming a major problem. The patient has been having difficult time to cope with the stress. No side effects to the medications are noted. The patient has been screaming and yelling and has to be given a dose of the Haldol and Benadryl ____ the agitation. ASSESSMENT: The patient is still grossly psychotic. PLAN: To continue the patient with the supportive therapy and followup. JOB# [id number]
[2017-10-01 07:30] LABS: % EOSINOPHILS 0.6 % (0.0-5.0); % LYMPHOCYTES 31.6 % (20.0-50.0); % MONOCYTES 9.5 % (2.0-10.0); % NEUTROPHILS 58.3 % (40.0-80.0); LYMPHOCYTE ABSOLUTE 1.8 Th/cmm (1.5-3.0); MEAN CELL VOLUME 85.6 fl (80-99); MEAN CORPUSCULAR HEMOGLOBIN 29.3 pg (26.0-30.0); MEAN CORPUSCULAR HGB CONC 34.2 pg (28.0-36.0); MEAN PLATELET VOLUME 8.4 fl; MONOCYTE ABSOLUTE 0.5 Th/cmm (0.3-1.0); NEUTROPHILE ABSOLUTE 3.3 Th/cmm (1.8-8.0); RED BLOOD COUNT 3.31 Mil/cmm (4.30-5.70); RED CELL DISTRIBUTION WIDTH 13.3 % (11.5-20.0); WHITE BLOOD COUNT 5.6 Th/cmm (4.8-10.8)
[2017-10-01 07:36] LABS: HEMATOCRIT 28.3 % (41.0-60); HEMOGLOBIN 9.7 gm/dL (12-16)
[2017-10-01 07:37] LABS: ALB/GLOB RATIO 1.1 (1.0-1.8); ALBUMIN 3.7 gm/dL (4.2-5.5); ANION GAP 8.4 (7.0-16.0); BILIRUBIN,TOTAL 0.4 mg/dL (0.3-1.0); CALCIUM SERUM 8.9 mg/dL (8.6-10.3); CARBON DIOXIDE 23.9 mEq/L (21.0-31.0); CREATININE - SERUM 1.9 mg/dL (0.7-1.3); GFR AFRICAN-AMERICAN 47.1 ml/min (>90); GFR NON AFRICAN-AMERICAN 38.9 ml/min; PLATELET COUNT 107 Th/cmm (150-400); POTASSIUM SERUM 4.3 mEq/L (3.5-5.1)
[2017-10-01] MEDS: Betamethasone/Clotrimazole Cream 15 gm Tube TP SCH ×2 (08:52→16:32)
[2017-10-01] MEDS: Nicotine 14 mg/24 hr Tdm TD SCH (09:21)
[2017-10-01] MEDS: Multivitamin Tab PO SCH (09:21)
--- NOTE | 2017-10-01 20:36 | General Progress Note ---
Subjective - Review of Systems Service Date: 10/01/17 Subjective: Patient is awake, confused, not oriented. Objective - Results Result Diagrams: 10/01/17 06:45 10/01/17 06:45 Recent Labs: Laboratory Last Values WBC 5.6 Th/cmm (4.8-10.8) 10/01/17 06:45 RBC 3.31 Mil/cmm (4.30-5.70) L 10/01/17 06:45 Hgb 9.7 gm/dL (12-16) L D 10/01/17 06:45 Hct 28.3 % (41.0-60) L D 10/01/17 06:45 MCV 85.6 fl (80-99) 10/01/17 06:45 MCH 29.3 pg (26.0-30.0) 10/01/17 06:45 MCHC Differential 34.2 pg (28.0-36.0) 10/01/17 06:45 RDW 13.3 % (11.5-20.0) 10/01/17 06:45 Plt Count 107 Th/cmm (150-400) L D 10/01/17 06:45 MPV 8.4 fl 10/01/17 06:45 Neutrophils % 58.3 % (40.0-80.0) 10/01/17 06:45 Lymphocytes % 31.6 % (20.0-50.0) 10/01/17 06:45 Monocytes % 9.5 % (2.0-10.0) 10/01/17 06:45 Eosinophils % 0.6 % (0.0-5.0) 10/01/17 06:45 Basophils % 0.0 % (0.0-2.0) 10/01/17 06:45 Sodium 138 mEq/L (136-145) 10/01/17 06:45 Potassium 4.3 mEq/L (3.5-5.1) 10/01/17 06:45 Chloride 110 mEq/L (98-107) H 10/01/17 06:45 Carbon Dioxide 23.9 mEq/L (21.0-31.0) 10/01/17 06:45 Anion Gap 8.4 (7.0-16.0) 10/01/17 06:45 BUN 26 mg/dL (7-25) H 10/01/17 06:45 Creatinine 1.9 mg/dL (0.7-1.3) H 10/01/17 06:45 Est GFR ( Amer) 47.1 ml/min (>90) 10/01/17 06:45 Est GFR (Non-Af Amer) 38.9 ml/min 10/01/17 06:45 BUN/Creatinine Ratio 13.7 10/01/17 06:45 Glucose 90 mg/dL (70-105) 10/01/17 06:45 Calcium 8.9 mg/dL (8.6-10.3) 10/01/17 06:45 Total Bilirubin 0.4 mg/dL (0.3-1.0) 10/01/17 06:45 AST 26 U/L (13-39) 10/01/17 06:45 ALT 23 U/L (7-52) 10/01/17 06:45 Alkaline Phosphatase 38 U/L (34-104) 10/01/17 06:45 Ammonia 38 umol/L (16-53) 10/01/17 06:45 Total Protein 7.0 gm/dL (6.0-8.3) 10/01/17 06:45 Albumin 3.7 gm/dL (4.2-5.5) L 10/01/17 06:45 Globulin 3.3 gm/dL 10/01/17 06:45 Albumin/Globulin Ratio 1.1 (1.0-1.8) 10/01/17 06:45 TSH 5.30 uIU/ml (0.34-5.60) 09/25/17 05:22 Valproic Acid 85.4 ug/mL (50.0-100.0) 09/25/17 05:22 - Physical Exam Vitals and I&O: Vital Signs Temp 97.9 F 10/01/17 15:52 Pulse 99 10/01/17 15:52 Resp 20 10/01/17 15:52 BP 135/76 10/01/17 15:52 Pulse Ox 97 10/01/17 15:52 Intake & Output 10/01/17 10/01/17 10/02/17 06:59 18:59 06:59 Intake Total 120 Balance 120 Intake: Oral 120 Other: # Voids 3 Active Medications: Current Medications Acetaminophen (Tylenol) 650 mg PO Q4HR PRN PRN Reason: Mild Pain / Temp above 100 Stop: 11/24/17 16:37 Atorvastatin Calcium (Lipitor) 20 mg PO HS [facility] Stop: 11/24/17 20:59 Last Admin: 09/30/17 21:58 Dose: 20 mg Betamethasone/Clotrimazole (Lotrisone Cream) 1 appl TP BID [facility] Stop: 11/29/17 16:59 Last Admin: 10/01/17 16:32 Dose: Not Given Magnesium Hydroxide (Milk Of Magnesia) 30 ml PO HS PRN PRN Reason: Constipation Multivitamins/Vitamin C (Theragran) 1 tab PO DAILY [facility] Stop: 11/25/17 08:59 Last Admin: 10/01/17 09:21 Dose: 1 tab Nicotine (Nicotine Transdermal System) 14 mg TD DAILY [facility] Stop: 11/24/17 13:59 Last Admin: 10/01/17 09:21 Dose: Not Given Olanzapine (Zyprexa) 10 mg PO DAILY [facility] PRN Reason: Protocol Stop: 11/30/17 08:59 Oxcarbazepine (Trileptal) 300 mg PO BID [facility] PRN Reason: Protocol Stop: 11/27/17 08:59 Last Admin: 10/01/17 17:36 Dose: 300 mg Quetiapine Fumarate (Seroquel) 25 mg PO HS [facility] PRN Reason: Protocol Stop: 11/29/17 20:59 Tamsulosin HCl (Flomax) 0.4 mg PO DAILY [facility] Stop: 11/24/17 13:59 Last Admin: 10/01/17 09:21 Dose: 0.4 mg Zolpidem Tartrate (Ambien) 5 mg PO HS PRN PRN Reason: Insomnia Stop: 11/24/17 16:37 Last Admin: 09/30/17 22:01 Dose: 5 mg General: Alert, Other (Confused, not oriented) HEENT: Atraumatic Neck: Supple Cardiovascular: Regular rate Lungs: Clear to auscultation Abdomen: Bowel sounds Extremities: Other (No edema) Neurological: Normal gait Skin: Other (warm and dry) Psych/Mental Status: Other (Patient is awake, alert, confused, not oriented) Assessment/Plan - Assessment Assessment: Patient is awake, confused, following verbal commands. Ammonia level is normal. Creatinine increased today. Hgb decreased today. Patient took his meds today. Dx: increased in agitation, Schizophrenia, muscle weakness. - Plan Plan: Patient is under Psychiatric care. Will continue SNF meds. Will continue to monitor. Nutritional Asmnt/Malnutr-PDOC - Dietary Evaluation Malnutrition Findings (Please click <Entered> for more info): Nutritional Asmnt/Malnutrition Start: 10/01/17 15: 02 Text: Status: Complete Freq: Document 10/01/17 15:02 [place] (Rec: 10/01/17 15:15 MALCOLM [email or web address]) Nutritional Asmnt/Malnutrition Patient General Information Nutritional Screening Moderate Risk Diagnosis psychosis Pertinent Medical Hx/Surgical Hx CAD dementia, schizophrenia, weakness Subjective Information Pt seen sitting in [facility] in dining room, at side. Per , pt has no denture/ teeth, would like to do ground diet d/t chewing difficulty on some food. Pt likes banana, scrambled eggs, milkd and cofee, does not eat cereal. Per notes, PO intake 75-100%. Current Diet Order/ Nutrition Support [facility] soft chopped Pertinent Medications theragran, seroquel Pertinent Labs 10/01 Na 138, K 4.3, Cl 110, BUN 26, Cr 1.9, Glucose 90, Ca 8.9, Alb 3.7 Nutritional Hx/Data Height 1.83 m Height (Calculated Centimeters) 182.9 Current Weight (lbs) 99.79 kg Weight (Calculated Kilograms) 99.8 Weight (Calculated Grams) 42614.3 [place] Body Weight 178 % [place] Body Weight 124 Body Mass Index (BMI) 29.8 Weight Status Overweight GI Symptoms GI Symptoms None Last BM none Skin Integrity/Comment: intact Current %PO Good (75-100%) Estimated Nutritional Goals Calories/Kcals/Kg 25-30 Kcals Calculated 2024--2429 based on IBW 81kg Protein g/k.8-1 Protein Calculated 65-81 Fluid: ml 2024--2429 Nutritional Problem No current Nutrition Prob Problem no nutrition problem at this time Malnutrition Alert Protein-Calorie Malnutrition N/A Is there a minimum of two criteria No selected? Query Text:Check all the applicable criteria. A minimum of two criteria are recommended for diagnosis of either severe or non-severe malnutrition. Intervention/Recommendation Comments 1. Recommend [facility] soft ground diet r/t chewing difficulty. RN made aware, will talk to MD . Updated pt diet profile. 2. Monitor PO intake and tolerance, wt weekly, labs and skin integrity 3. F/U as moderate risk in 3-5 days, 10/04-09/26 Expected Outcomes/Goals Expected Outcomes/Goals 1. PO intake to meet at least 75% of nutritional needs. 2. Wt stability, skin to remain intact, labs to approach WNL.
[2017-10-01] MEDS: Atorvastatin Calcium 10 MG TAB PO SCH (21:28)
--- NOTE | 2017-10-02 02:03 | Progress Notes ---
DATE: 10/01/2017 SUBJECTIVE: Staff was spoken to. The patient is interviewed. Mood is noted to be irritable. Affect is constricted. The patient is still very disruptive and has been going back and forth in the wheelchair. The patient's coping skills at this time are noted to be very poor. Insight and judgment are very much impaired. The patient is not able to contract for safety. The patient's sleep is noted to be still poor. We are trying to slowly adjust the dose on the Seroquel and the patient at this time is not ready. The patient has been trying to be very disruptive even when he is on 10 mg of the olanzapine at night time and oxcarbazepine 300 mg twice a day. Still behavior is a major problem at this time. ASSESSMENT: The patient is still grossly psychotic. PLAN: To continue the patient with the supportive therapy. I encouraged the patient to verbalize the concerns rather than to act out. JOB# [id number]
--- NOTE | 2017-10-02 09:21 | General Progress Note ---
Subjective - Review of Systems Service Date: 10/02/17 Subjective: Patient is awake, confused, not oriented. Objective - Results Result Diagrams: 10/01/17 06:45 10/01/17 06:45 Recent Labs: Laboratory Last Values WBC 5.6 Th/cmm (4.8-10.8) 10/01/17 06:45 RBC 3.31 Mil/cmm (4.30-5.70) L 10/01/17 06:45 Hgb 9.7 gm/dL (12-16) L D 10/01/17 06:45 Hct 28.3 % (41.0-60) L D 10/01/17 06:45 MCV 85.6 fl (80-99) 10/01/17 06:45 MCH 29.3 pg (26.0-30.0) 10/01/17 06:45 MCHC Differential 34.2 pg (28.0-36.0) 10/01/17 06:45 RDW 13.3 % (11.5-20.0) 10/01/17 06:45 Plt Count 107 Th/cmm (150-400) L D 10/01/17 06:45 MPV 8.4 fl 10/01/17 06:45 Neutrophils % 58.3 % (40.0-80.0) 10/01/17 06:45 Lymphocytes % 31.6 % (20.0-50.0) 10/01/17 06:45 Monocytes % 9.5 % (2.0-10.0) 10/01/17 06:45 Eosinophils % 0.6 % (0.0-5.0) 10/01/17 06:45 Basophils % 0.0 % (0.0-2.0) 10/01/17 06:45 Sodium 138 mEq/L (136-145) 10/01/17 06:45 Potassium 4.3 mEq/L (3.5-5.1) 10/01/17 06:45 Chloride 110 mEq/L (98-107) H 10/01/17 06:45 Carbon Dioxide 23.9 mEq/L (21.0-31.0) 10/01/17 06:45 Anion Gap 8.4 (7.0-16.0) 10/01/17 06:45 BUN 26 mg/dL (7-25) H 10/01/17 06:45 Creatinine 1.9 mg/dL (0.7-1.3) H 10/01/17 06:45 Est GFR ( Amer) 47.1 ml/min (>90) 10/01/17 06:45 Est GFR (Non-Af Amer) 38.9 ml/min 10/01/17 06:45 BUN/Creatinine Ratio 13.7 10/01/17 06:45 Glucose 90 mg/dL (70-105) 10/01/17 06:45 Calcium 8.9 mg/dL (8.6-10.3) 10/01/17 06:45 Total Bilirubin 0.4 mg/dL (0.3-1.0) 10/01/17 06:45 AST 26 U/L (13-39) 10/01/17 06:45 ALT 23 U/L (7-52) 10/01/17 06:45 Alkaline Phosphatase 38 U/L (34-104) 10/01/17 06:45 Ammonia 38 umol/L (16-53) 10/01/17 06:45 Total Protein 7.0 gm/dL (6.0-8.3) 10/01/17 06:45 Albumin 3.7 gm/dL (4.2-5.5) L 10/01/17 06:45 Globulin 3.3 gm/dL 10/01/17 06:45 Albumin/Globulin Ratio 1.1 (1.0-1.8) 10/01/17 06:45 TSH 5.30 uIU/ml (0.34-5.60) 09/25/17 05:22 Valproic Acid 85.4 ug/mL (50.0-100.0) 09/25/17 05:22 - Physical Exam Vitals and I&O: Vital Signs Temp 97.9 F 10/01/17 15:52 Pulse 99 10/01/17 15:52 Resp 20 10/01/17 15:52 BP 135/76 10/01/17 15:52 Pulse Ox 97 10/01/17 15:52 Intake & Output 10/01/17 10/02/17 10/02/17 18:59 06:59 18:59 Intake Total 120 Balance 120 Intake: Oral 120 Other: # Voids 2 # Bowel Movements 0 Active Medications: Current Medications Acetaminophen (Tylenol) 650 mg PO Q4HR PRN PRN Reason: Mild Pain / Temp above 100 Stop: 11/24/17 16:37 Atorvastatin Calcium (Lipitor) 20 mg PO HS ON LICENSE OF [facility] Stop: 11/24/17 20:59 Last Admin: 10/01/17 21:28 Dose: 20 mg Magnesium Hydroxide (Milk Of Magnesia) 30 ml PO HS PRN PRN Reason: Constipation Multivitamins/Vitamin C (Theragran) 1 tab PO DAILY ON LICENSE OF [facility] Stop: 11/25/17 08:59 Last Admin: 10/01/17 09:21 Dose: 1 tab Nicotine (Nicotine Transdermal System) 14 mg TD DAILY JUAN Stop: 11/24/17 13:59 Last Admin: 10/01/17 09:21 Dose: Not Given Olanzapine (Zyprexa) 10 mg PO DAILY JUAN PRN Reason: Protocol Stop: 11/30/17 08:59 Oxcarbazepine (Trileptal) 300 mg PO BID JUAN PRN Reason: Protocol Stop: 11/27/17 08:59 Last Admin: 10/01/17 17:36 Dose: 300 mg Quetiapine Fumarate (Seroquel) 25 mg PO HS JUAN PRN Reason: Protocol Stop: 11/29/17 20:59 Tamsulosin HCl (Flomax) 0.4 mg PO DAILY ON [facility] OF [facility] Stop: 11/24/17 13:59 Last Admin: 10/01/17 09:21 Dose: 0.4 mg Zolpidem Tartrate (Ambien) 5 mg PO HS PRN PRN Reason: Insomnia Stop: 11/24/17 16:37 Last Admin: 10/01/17 21:28 Dose: 5 mg General: Alert, Other (Confused, not oriented) HEENT: Atraumatic Neck: Supple Cardiovascular: Regular rate Lungs: Clear to auscultation Abdomen: Bowel sounds Extremities: Other (No edema) Neurological: Normal gait Skin: Other (warm and dry) Psych/Mental Status: Other (Patient is awake, alert, confused, not oriented) Assessment/Plan - Assessment Assessment: Patient is awake, confused, not following verbal commands. He refused draw blood. Patient took his meds today. Dx: increased in agitation, Schizophrenia , muscle weakness. - Plan Plan: Patient is under Psychiatric care. Will continue SNF meds. Will continue to monitor. Nutritional Asmnt/Malnutr-PDOC - Dietary Evaluation Malnutrition Findings (Please click <Entered> for more info): Nutritional Asmnt/Malnutrition Start: 10/01/17 15: 02 Text: Status: Complete Freq: Document 10/01/17 15:02 JARON (Rec: 10/01/17 15:15 JARON [email or web address]) Nutritional Asmnt/Malnutrition Patient General Information Nutritional Screening Moderate Risk Diagnosis psychosis Pertinent Medical Hx/Surgical Hx CAD dementia, schizophrenia, weakness Subjective Information Pt seen sitting in [facility] in dining room, at side. Per , pt has no denture/ teeth, would like to do ground diet d/t chewing difficulty on some food. Pt likes banana, scrambled eggs, milkd and cofee, does not eat cereal. Per notes, PO intake 75-100%. Current Diet Order/ Nutrition Support [facility] soft chopped Pertinent Medications theragran, seroquel Pertinent Labs 10/01 Na 138, K 4.3, Cl 110, BUN 26, Cr 1.9, Glucose 90, Ca 8.9, Alb 3.7 Nutritional Hx/Data Height 1.83 m Height (Calculated Centimeters) 182.9 Current Weight (lbs) 99.79 kg Weight (Calculated Kilograms) 99.8 Weight (Calculated Grams) 75403.3 [place] Body Weight 178 % [place] Body Weight 124 Body Mass Index (BMI) 29.8 Weight Status Overweight GI Symptoms GI Symptoms None Last BM none Skin Integrity/Comment: intact Current %PO Good (75-100%) Estimated Nutritional Goals Calories/Kcals/Kg 25-30 Kcals Calculated 2024--2429 based on IBW 81kg Protein g/k.8-1 Protein Calculated 65-81 Fluid: ml 2024--2429 Nutritional Problem No current Nutrition Prob Problem no nutrition problem at this time Malnutrition Alert Protein-Calorie Malnutrition N/A Is there a minimum of two criteria No selected? Query Text:Check all the applicable criteria. A minimum of two criteria are recommended for diagnosis of either severe or non-severe malnutrition. Intervention/Recommendation Comments 1. Recommend [facility] soft ground diet r/t chewing difficulty. RN made aware, will talk to MD . Updated pt diet profile. 2. Monitor PO intake and tolerance, wt weekly, labs and skin integrity 3. F/U as moderate risk in 3-5 days, 10/04-09/26 Expected Outcomes/Goals Expected Outcomes/Goals 1. PO intake to meet at least 75% of nutritional needs. 2. Wt stability, skin to remain intact, labs to approach WNL.
[2017-10-02] MEDS: Multivitamin Tab PO SCH (09:22)
[2017-10-02] MEDS: Nicotine 14 mg/24 hr Tdm TD SCH (09:23)
[2017-10-02 09:46] LABS: % BASOPHILS 0.7 % (0.0-2.0); % EOSINOPHILS 1.6 % (0.0-5.0); % LYMPHOCYTES 22.6 % (20.0-50.0); % MONOCYTES 8.3 % (2.0-10.0); % NEUTROPHILS 66.8 % (40.0-80.0); EOSINOPHILE ABSOLUTE 0.1 Th/cmm (0.1-0.4); HEMOGLOBIN 12.6 gm/dL (12-16); LYMPHOCYTE ABSOLUTE 1.5 Th/cmm (1.5-3.0); MEAN CELL VOLUME 93.2 fl (80-99); MEAN CORPUSCULAR HEMOGLOBIN 31.3 pg (26.0-30.0); MEAN CORPUSCULAR HGB CONC 33.5 pg (28.0-36.0); MONOCYTE ABSOLUTE 0.6 Th/cmm (0.3-1.0); NEUTROPHILE ABSOLUTE 4.6 Th/cmm (1.8-8.0); RED BLOOD COUNT 4.02 Mil/cmm (4.30-5.70); RED CELL DISTRIBUTION WIDTH 13.4 % (11.5-20.0)
[2017-10-02 09:48] LABS: HEMATOCRIT 37.5 % (41.0-60); PLATELET COUNT 205 Th/cmm (150-400); WHITE BLOOD COUNT 6.8 Th/cmm (4.8-10.8)
[2017-10-02 09:57] LABS: ALB/GLOB RATIO 1.4 (1.0-1.8); ALKALINE PHOSPHATASE 96 U/L (34-104); ANION GAP 10.9 (7.0-16.0); BILIRUBIN,TOTAL 0.7 mg/dL (0.3-1.0); BUN - UREA NITROGEN 21 mg/dL (7-25); CALCIUM SERUM 9.4 mg/dL (8.6-10.3); CARBON DIOXIDE 29.1 mEq/L (21.0-31.0); CHLORIDE 104 mEq/L (98-107); CREATININE - SERUM 0.7 mg/dL (0.7-1.3); GFR AFRICAN-AMERICAN > 60.0 ml/min (>90); GFR NON AFRICAN-AMERICAN > 60.0 ml/min; GLUCOSE 97 mg/dL (70-105); SGOT 23 U/L (13-39); SGPT/ALT 20 U/L (7-52); SODIUM SERUM 140 mEq/L (136-145); TOTAL PROTEIN,SERUM 6.8 gm/dL (6.0-8.3)
--- NOTE | 2017-10-02 13:40 | Progress Notes ---
DATE: 10/02/2017 SUBJECTIVE: Staff was spoken to. The patient is interviewed. Mood is noted to be less irritable. Affect is appropriate. The patient has been taken off the Zyprexa at nighttime and has been placed on the Seroquel. The patient's ammonia level before, which has come down to 43, slowly is creeping up to 50 and the patient's BUN and creatinine are improving at this time. The patient's has been spoken to in detail and explained about the medication changes. ASSESSMENT: The patient is still impulsive. PLAN: To continue the patient with the supportive therapy, encouraged the patient to verbalize the concerns rather than to act out. JOB# [id number]
[2017-10-02] MEDS: Atorvastatin Calcium 10 MG TAB PO SCH (20:58)
[2017-10-03] MEDS: Multivitamin Tab PO SCH (08:49)
[2017-10-03] MEDS: Nicotine 14 mg/24 hr Tdm TD SCH (09:00)
--- NOTE | 2017-10-03 10:37 | General Progress Note ---
Subjective - Review of Systems Service Date: 10/03/17 Subjective: Patient is awake, confused, not oriented. Objective - Results Result Diagrams: 10/02/17 09:25 10/02/17 09:25 Recent Labs: Laboratory Last Values WBC 6.8 Th/cmm (4.8-10.8) D 10/02/17 09:25 RBC 4.02 Mil/cmm (4.30-5.70) L 10/02/17 09:25 Hgb 12.6 gm/dL (12-16) 10/02/17 09:25 Hct 37.5 % (41.0-60) L D 10/02/17 09:25 MCV 93.2 fl (80-99) 10/02/17 09:25 MCH 31.3 pg (26.0-30.0) H 10/02/17 09:25 MCHC Differential 33.5 pg (28.0-36.0) 10/02/17 09:25 RDW 13.4 % (11.5-20.0) 10/02/17 09:25 Plt Count 205 Th/cmm (150-400) D 10/02/17 09:25 MPV 7.0 fl 10/02/17 09:25 Neutrophils % 66.8 % (40.0-80.0) 10/02/17 09:25 Lymphocytes % 22.6 % (20.0-50.0) 10/02/17 09:25 Monocytes % 8.3 % (2.0-10.0) 10/02/17 09:25 Eosinophils % 1.6 % (0.0-5.0) 10/02/17 09:25 Basophils % 0.7 % (0.0-2.0) 10/02/17 09:25 Sodium 140 mEq/L (136-145) 10/02/17 09:25 Potassium 4.0 mEq/L (3.5-5.1) 10/02/17 09:25 Chloride 104 mEq/L (98-107) 10/02/17 09:25 Carbon Dioxide 29.1 mEq/L (21.0-31.0) 10/02/17 09:25 Anion Gap 10.9 (7.0-16.0) 10/02/17 09:25 BUN 21 mg/dL (7-25) 10/02/17 09:25 Creatinine 0.7 mg/dL (0.7-1.3) 10/02/17 09:25 Est GFR ( Amer) > 60.0 ml/min (>90) 10/02/17 09:25 Est GFR (Non-Af Amer) > 60.0 ml/min 10/02/17 09:25 BUN/Creatinine Ratio 30.0 10/02/17 09:25 Glucose 97 mg/dL (70-105) 10/02/17 09:25 Calcium 9.4 mg/dL (8.6-10.3) 10/02/17 09:25 Total Bilirubin 0.7 mg/dL (0.3-1.0) 10/02/17 09:25 AST 23 U/L (13-39) 10/02/17 09:25 ALT 20 U/L (7-52) 10/02/17 09:25 Alkaline Phosphatase 96 U/L (34-104) 10/02/17 09:25 Ammonia 50 umol/L (16-53) 10/02/17 09:25 Total Protein 6.8 gm/dL (6.0-8.3) 10/02/17 09:25 Albumin 4.0 gm/dL (4.2-5.5) L 10/02/17 09:25 Globulin 2.8 gm/dL 10/02/17 09:25 Albumin/Globulin Ratio 1.4 (1.0-1.8) 10/02/17 09:25 TSH 5.30 uIU/ml (0.34-5.60) 09/25/17 05:22 Valproic Acid 85.4 ug/mL (50.0-100.0) 09/25/17 05:22 - Physical Exam Vitals and I&O: Vital Signs Temp 98.2 F 10/03/17 06:39 Pulse 78 10/03/17 06:39 Resp 18 10/03/17 06:39 BP 123/75 10/03/17 06:39 Pulse Ox 100 10/03/17 06:39 Intake & Output 10/02/17 10/03/17 10/03/17 18:59 06:59 18:59 Intake Total 900 240 Balance 900 240 Intake: Oral 900 240 Other: # Voids 5 1 # Bowel Movements 0 Active Medications: Current Medications Acetaminophen (Tylenol) 650 mg PO Q4HR PRN PRN Reason: Mild Pain / Temp above 100 Stop: 11/24/17 16:37 Atorvastatin Calcium (Lipitor) 20 mg PO HS JUAN Stop: 11/24/17 20:59 Last Admin: 10/02/17 20:58 Dose: 20 mg Magnesium Hydroxide (Milk Of Magnesia) 30 ml PO HS PRN PRN Reason: Constipation Multivitamins/Vitamin C (Theragran) 1 tab PO DAILY JUAN Stop: 11/25/17 08:59 Last Admin: 10/03/17 08:49 Dose: 1 tab Nicotine (Nicotine Transdermal System) 14 mg TD DAILY JUAN Stop: 11/24/17 13:59 Last Admin: 10/02/17 09:23 Dose: 14 mg Olanzapine (Zyprexa) 10 mg PO DAILY JUAN PRN Reason: Protocol Stop: 11/30/17 08:59 Last Admin: 10/03/17 08:49 Dose: 10 mg Oxcarbazepine (Trileptal) 300 mg PO BID JUAN PRN Reason: Protocol Stop: 11/27/17 08:59 Last Admin: 10/03/17 08:49 Dose: 300 mg Quetiapine Fumarate (Seroquel) 25 mg PO HS JUAN PRN Reason: Protocol Stop: 11/29/17 20:59 Last Admin: 10/02/17 20:58 Dose: 25 mg Tamsulosin HCl (Flomax) 0.4 mg PO DAILY [facility] Stop: 11/24/17 13:59 Last Admin: 10/03/17 08:49 Dose: 0.4 mg Zolpidem Tartrate (Ambien) 5 mg PO HS PRN PRN Reason: Insomnia Stop: 11/24/17 16:37 Last Admin: 10/02/17 23:08 Dose: 5 mg General: Alert, Other (Confused, not oriented) HEENT: Atraumatic Neck: Supple Cardiovascular: Regular rate Lungs: Clear to auscultation Abdomen: Bowel sounds Extremities: Other (No edema) Neurological: Normal gait Skin: Other (warm and dry) Psych/Mental Status: Other (Patient is awake, alert, confused, not oriented) Assessment/Plan - Assessment Assessment: Patient is awake, confused, not following verbal commands. Patient took his meds today. Dx: increased in agitation, Schizophrenia, muscle weakness. - Plan Plan: Patient is under Psychiatric care. Will continue SNF meds. Will continue to monitor. Nutritional Asmnt/Malnutr-PDOC - Dietary Evaluation Malnutrition Findings (Please click <Entered> for more info): Nutritional Asmnt/Malnutrition Start: 10/01/17 15: 02 Text: Status: Complete Freq: Document 10/01/17 15:02 LCMALCOLMG (Rec: 10/01/17 15:15 MALCOLMG [email or web address]) Nutritional Asmnt/Malnutrition Patient General Information Nutritional Screening Moderate Risk Diagnosis psychosis Pertinent Medical Hx/Surgical Hx CAD dementia, schizophrenia, weakness Subjective Information Pt seen sitting in the [facility] in dining room, at side. Per , pt has no denture/ teeth, would like to do ground diet d/t chewing difficulty on some food. Pt likes banana, scrambled eggs, milkd and cofee, does not eat cereal. Per notes, PO intake 75-100%. Current Diet Order/ Nutrition Support [facility] soft chopped Pertinent Medications theragran, seroquel Pertinent Labs 10/01 Na 138, K 4.3, Cl 110, BUN 26, Cr 1.9, Glucose 90, Ca 8.9, Alb 3.7 Nutritional Hx/Data Height 1.83 m Height (Calculated Centimeters) 182.9 Current Weight (lbs) 99.79 kg Weight (Calculated Kilograms) 99.8 Weight (Calculated Grams) 87894.3 [place] Body Weight 178 % [place] Body Weight 124 Body Mass Index (BMI) 29.8 Weight Status Overweight GI Symptoms GI Symptoms None Last BM none Skin Integrity/Comment: intact Current %PO Good (75-100%) Estimated Nutritional Goals Calories/Kcals/Kg 25-30 Kcals Calculated 2024--2429 based on IBW 81kg Protein g/k.8-1 Protein Calculated 65-81 Fluid: ml 2024--2429 Nutritional Problem No current Nutrition Prob Problem no nutrition problem at this time Malnutrition Alert Protein-Calorie Malnutrition N/A Is there a minimum of two criteria No selected? Query Text:Check all the applicable criteria. A minimum of two criteria are recommended for diagnosis of either severe or non-severe malnutrition. Intervention/Recommendation Comments 1. Recommend [facility] soft ground diet r/t chewing difficulty. RN made aware, will talk to MD . Updated pt diet profile. 2. Monitor PO intake and tolerance, wt weekly, labs and skin integrity 3. F/U as moderate risk in 3-5 days, 10/04-09/26 Expected Outcomes/Goals Expected Outcomes/Goals 1. PO intake to meet at least 75% of nutritional needs. 2. Wt stability, skin to remain intact, labs to approach WNL.
--- NOTE | 2017-10-03 19:20 | Progress Notes ---
DATE: 10/03/2017 PSYCHIATRIC PROGRESS NOTE SUBJECTIVE: Staff was spoken to. The patient is interviewed. Mood is noted to be anxious and disruptive. The patient's coping skills are noted to be very poor. The patient has been having a difficult time to cope with the stress. No side effects to the medications are noted. The patient has been on 10 mg of the Zyprexa. Plan to decrease the Zyprexa to 5 mg and the patient's has been made aware of the changes with the medications. PLAN: The patient's quetiapine is going to be decreased to twice a day and the patient is going to be followed up with supportive therapy. ASSESSMENT: The patient is still grossly psychotic and impulsive. PLAN: To continue the patient with the current medications. I encouraged the patient to verbalize the concerns rather than to act out. JOB# [id number]
[2017-10-03] MEDS: Atorvastatin Calcium 10 MG TAB PO SCH (21:13)
[2017-10-04] MEDS: Multivitamin Tab PO SCH (09:41)
[2017-10-04] MEDS: Nicotine 14 mg/24 hr Tdm TD SCH (09:41)
--- NOTE | 2017-10-04 16:27 | General Progress Note ---
Subjective - Review of Systems Service Date: 10/04/17 Subjective: Patient is awake, confused, not oriented. Objective - Results Result Diagrams: 10/02/17 09:25 10/02/17 09:25 Recent Labs: Laboratory Last Values WBC 6.8 Th/cmm (4.8-10.8) D 10/02/17 09:25 RBC 4.02 Mil/cmm (4.30-5.70) L 10/02/17 09:25 Hgb 12.6 gm/dL (12-16) 10/02/17 09:25 Hct 37.5 % (41.0-60) L D 10/02/17 09:25 MCV 93.2 fl (80-99) 10/02/17 09:25 MCH 31.3 pg (26.0-30.0) H 10/02/17 09:25 MCHC Differential 33.5 pg (28.0-36.0) 10/02/17 09:25 RDW 13.4 % (11.5-20.0) 10/02/17 09:25 Plt Count 205 Th/cmm (150-400) D 10/02/17 09:25 MPV 7.0 fl 10/02/17 09:25 Neutrophils % 66.8 % (40.0-80.0) 10/02/17 09:25 Lymphocytes % 22.6 % (20.0-50.0) 10/02/17 09:25 Monocytes % 8.3 % (2.0-10.0) 10/02/17 09:25 Eosinophils % 1.6 % (0.0-5.0) 10/02/17 09:25 Basophils % 0.7 % (0.0-2.0) 10/02/17 09:25 Sodium 140 mEq/L (136-145) 10/02/17 09:25 Potassium 4.0 mEq/L (3.5-5.1) 10/02/17 09:25 Chloride 104 mEq/L (98-107) 10/02/17 09:25 Carbon Dioxide 29.1 mEq/L (21.0-31.0) 10/02/17 09:25 Anion Gap 10.9 (7.0-16.0) 10/02/17 09:25 BUN 21 mg/dL (7-25) 10/02/17 09:25 Creatinine 0.7 mg/dL (0.7-1.3) 10/02/17 09:25 Est GFR ( Amer) > 60.0 ml/min (>90) 10/02/17 09:25 Est GFR (Non-Af Amer) > 60.0 ml/min 10/02/17 09:25 BUN/Creatinine Ratio 30.0 10/02/17 09:25 Glucose 97 mg/dL (70-105) 10/02/17 09:25 Calcium 9.4 mg/dL (8.6-10.3) 10/02/17 09:25 Total Bilirubin 0.7 mg/dL (0.3-1.0) 10/02/17 09:25 AST 23 U/L (13-39) 10/02/17 09:25 ALT 20 U/L (7-52) 10/02/17 09:25 Alkaline Phosphatase 96 U/L (34-104) 10/02/17 09:25 Ammonia 50 umol/L (16-53) 10/02/17 09:25 Total Protein 6.8 gm/dL (6.0-8.3) 10/02/17 09:25 Albumin 4.0 gm/dL (4.2-5.5) L 10/02/17 09:25 Globulin 2.8 gm/dL 10/02/17 09:25 Albumin/Globulin Ratio 1.4 (1.0-1.8) 10/02/17 09:25 TSH 5.30 uIU/ml (0.34-5.60) 09/25/17 05:22 Valproic Acid 85.4 ug/mL (50.0-100.0) 09/25/17 05:22 - Physical Exam Vitals and I&O: Vital Signs Temp 97.6 F 10/04/17 07:00 Pulse 66 10/04/17 07:00 Resp 18 10/04/17 07:00 BP 104/67 10/04/17 07:00 Pulse Ox 100 10/04/17 07:00 Intake & Output 10/03/17 10/04/17 10/04/17 18:59 06:59 18:59 Intake Total 900 240 Balance 900 240 Intake: Oral 900 240 Other: # Voids 4 1 # Bowel Movements 0 Active Medications: Current Medications Acetaminophen (Tylenol) 650 mg PO Q4HR PRN PRN Reason: Mild Pain / Temp above 100 Stop: 11/24/17 16:37 Atorvastatin Calcium (Lipitor) 20 mg PO HS [facility] Stop: 11/24/17 20:59 Last Admin: 10/03/17 21:13 Dose: 20 mg Magnesium Hydroxide (Milk Of Magnesia) 30 ml PO HS PRN PRN Reason: Constipation Multivitamins/Vitamin C (Theragran) 1 tab PO DAILY [facility] Stop: 11/25/17 08:59 Last Admin: 10/04/17 09:41 Dose: 1 tab Nicotine (Nicotine Transdermal System) 14 mg TD DAILY [facility] Stop: 11/24/17 13:59 Last Admin: 10/04/17 09:41 Dose: 14 mg Oxcarbazepine (Trileptal) 300 mg PO BID [facility] PRN Reason: Protocol Stop: 11/27/17 08:59 Last Admin: 10/04/17 09:50 Dose: 300 mg Quetiapine Fumarate (Seroquel) 25 mg PO BID JUAN PRN Reason: Protocol Stop: 12/02/17 16:59 Last Admin: 10/04/17 09:50 Dose: 25 mg Tamsulosin HCl (Flomax) 0.4 mg PO DAILY [facility] Stop: 11/24/17 13:59 Last Admin: 10/04/17 09:50 Dose: 0.4 mg Zolpidem Tartrate (Ambien) 5 mg PO HS PRN PRN Reason: Insomnia Stop: 11/24/17 16:37 Last Admin: 10/03/17 21:13 Dose: 5 mg General: Alert, Other (Confused, not oriented) HEENT: Atraumatic Neck: Supple Cardiovascular: Regular rate Lungs: Clear to auscultation Abdomen: Bowel sounds Extremities: Other (No edema) Neurological: Normal gait Skin: Other (warm and dry) Psych/Mental Status: Other (Patient is awake, alert, confused, not oriented) Assessment/Plan - Assessment Assessment: Patient is awake, confused, not following verbal commands. Patient took his meds today. Dx: increased in agitation, Schizophrenia, muscle weakness. - Plan Plan: Patient is under Psychiatric care. Will continue SNF meds. Will continue to monitor. Nutritional Asmnt/Malnutr-PDOC - Dietary Evaluation Malnutrition Findings (Please click <Entered> for more info): Nutritional Asmnt/Malnutrition Start: 10/01/17 15: 02 Text: Status: Complete Freq: Document 10/01/17 15:02 MILTON[place] (Rec: 10/01/17 15:15 MIL[place] [email or web address]) Nutritional Asmnt/Malnutrition Patient General Information Nutritional Screening Moderate Risk Diagnosis psychosis Pertinent Medical Hx/Surgical Hx CAD dementia, schizophrenia, weakness Subjective Information Pt seen sitting in [facility] in dining room, at side. Per , pt has no denture/ teeth, would like to do ground diet d/t chewing difficulty on some food. Pt likes banana, scrambled eggs, milkd and cofee, does not eat cereal. Per notes, PO intake 75-100%. Current Diet Order/ Nutrition Support [facility] soft chopped Pertinent Medications theragran, seroquel Pertinent Labs 10/01 Na 138, K 4.3, Cl 110, BUN 26, Cr 1.9, Glucose 90, Ca 8.9, Alb 3.7 Nutritional Hx/Data Height 1.83 m Height (Calculated Centimeters) 182.9 Current Weight (lbs) 99.79 kg Weight (Calculated Kilograms) 99.8 Weight (Calculated Grams) 97862.3 [place] Body Weight 178 % [place] Body Weight 124 Body Mass Index (BMI) 29.8 Weight Status Overweight GI Symptoms GI Symptoms None Last BM none Skin Integrity/Comment: intact Current %PO Good (75-100%) Estimated Nutritional Goals Calories/Kcals/Kg 25-30 Kcals Calculated 2024--2429 based on IBW 81kg Protein g/k.8-1 Protein Calculated 65-81 Fluid: ml 2024--2429 Nutritional Problem No current Nutrition Prob Problem no nutrition problem at this time Malnutrition Alert Protein-Calorie Malnutrition N/A Is there a minimum of two criteria No selected? Query Text:Check all the applicable criteria. A minimum of two criteria are recommended for diagnosis of either severe or non-severe malnutrition. Intervention/Recommendation Comments 1. Recommend [facility] soft ground diet r/t chewing difficulty. RN made aware, will talk to MD . Updated pt diet profile. 2. Monitor PO intake and tolerance, wt weekly, labs and skin integrity 3. F/U as moderate risk in 3-5 days, 10/04-09/26 Expected Outcomes/Goals Expected Outcomes/Goals 1. PO intake to meet at least 75% of nutritional needs. 2. Wt stability, skin to remain intact, labs to approach WNL.
[2017-10-04] MEDS: Atorvastatin Calcium 10 MG TAB PO SCH (21:11)
--- NOTE | 2017-10-04 23:00 | Progress Notes ---
DATE: 10/04/2017 SUBJECTIVE: Staff was spoken to. The patient is interviewed. Mood is noted to be dysphoric. Coping skills are noted to be poor. The patient has been having difficult time to cope with the stress. The patient is currently on olanzapine 5 mg in the morning and thus going to be discontinued and the patient's medications are going to be completely switched over to the quetiapine and the patient is currently on 25 mg of the quetiapine and oxcarbazepine is being given at 300 mg twice a day. With these medications, the patient is going to be observed and will be encouraged to participate in the groups and verbalize the concerns rather than to act out. JOB# [id number]
--- NOTE | 2017-10-05 09:12 | General Progress Note ---
Subjective - Review of Systems Service Date: 10/05/17 Subjective: Patient is awake, confused, not oriented. Objective - Results Result Diagrams: 10/02/17 09:25 10/02/17 09:25 Recent Labs: Laboratory Last Values WBC 6.8 Th/cmm (4.8-10.8) D 10/02/17 09:25 RBC 4.02 Mil/cmm (4.30-5.70) L 10/02/17 09:25 Hgb 12.6 gm/dL (12-16) 10/02/17 09:25 Hct 37.5 % (41.0-60) L D 10/02/17 09:25 MCV 93.2 fl (80-99) 10/02/17 09:25 MCH 31.3 pg (26.0-30.0) H 10/02/17 09:25 MCHC Differential 33.5 pg (28.0-36.0) 10/02/17 09:25 RDW 13.4 % (11.5-20.0) 10/02/17 09:25 Plt Count 205 Th/cmm (150-400) D 10/02/17 09:25 MPV 7.0 fl 10/02/17 09:25 Neutrophils % 66.8 % (40.0-80.0) 10/02/17 09:25 Lymphocytes % 22.6 % (20.0-50.0) 10/02/17 09:25 Monocytes % 8.3 % (2.0-10.0) 10/02/17 09:25 Eosinophils % 1.6 % (0.0-5.0) 10/02/17 09:25 Basophils % 0.7 % (0.0-2.0) 10/02/17 09:25 Sodium 140 mEq/L (136-145) 10/02/17 09:25 Potassium 4.0 mEq/L (3.5-5.1) 10/02/17 09:25 Chloride 104 mEq/L (98-107) 10/02/17 09:25 Carbon Dioxide 29.1 mEq/L (21.0-31.0) 10/02/17 09:25 Anion Gap 10.9 (7.0-16.0) 10/02/17 09:25 BUN 21 mg/dL (7-25) 10/02/17 09:25 Creatinine 0.7 mg/dL (0.7-1.3) 10/02/17 09:25 Est GFR ( Amer) > 60.0 ml/min (>90) 10/02/17 09:25 Est GFR (Non-Af Amer) > 60.0 ml/min 10/02/17 09:25 BUN/Creatinine Ratio 30.0 10/02/17 09:25 Glucose 97 mg/dL (70-105) 10/02/17 09:25 Calcium 9.4 mg/dL (8.6-10.3) 10/02/17 09:25 Total Bilirubin 0.7 mg/dL (0.3-1.0) 10/02/17 09:25 AST 23 U/L (13-39) 10/02/17 09:25 ALT 20 U/L (7-52) 10/02/17 09:25 Alkaline Phosphatase 96 U/L (34-104) 10/02/17 09:25 Ammonia 50 umol/L (16-53) 10/02/17 09:25 Total Protein 6.8 gm/dL (6.0-8.3) 10/02/17 09:25 Albumin 4.0 gm/dL (4.2-5.5) L 10/02/17 09:25 Globulin 2.8 gm/dL 10/02/17 09:25 Albumin/Globulin Ratio 1.4 (1.0-1.8) 10/02/17 09:25 TSH 5.30 uIU/ml (0.34-5.60) 09/25/17 05:22 Valproic Acid 85.4 ug/mL (50.0-100.0) 09/25/17 05:22 - Physical Exam Vitals and I&O: Vital Signs Temp 97.6 F 10/04/17 21:40 Pulse 70 10/04/17 21:40 Resp 20 10/04/17 21:40 BP 103/70 10/04/17 21:40 Pulse Ox 92 10/04/17 21:40 Intake & Output 10/04/17 10/05/17 10/05/17 18:59 06:59 18:59 Intake Total 800 120 Balance 800 120 Intake: Oral 800 120 Other: # Voids 3 2 # Bowel Movements 1 0 Active Medications: Current Medications Acetaminophen (Tylenol) 650 mg PO Q4HR PRN PRN Reason: Mild Pain / Temp above 100 Stop: 11/24/17 16:37 Atorvastatin Calcium (Lipitor) 20 mg PO HS [facility] Stop: 11/24/17 20:59 Last Admin: 10/04/17 21:11 Dose: 20 mg Magnesium Hydroxide (Milk Of Magnesia) 30 ml PO HS PRN PRN Reason: Constipation Multivitamins/Vitamin C (Theragran) 1 tab PO DAILY [facility] Stop: 11/25/17 08:59 Last Admin: 10/04/17 09:41 Dose: 1 tab Nicotine (Nicotine Transdermal System) 14 mg TD DAILY [facility] Stop: 11/24/17 13:59 Last Admin: 10/04/17 09:41 Dose: 14 mg Oxcarbazepine (Trileptal) 300 mg PO BID [facility] PRN Reason: Protocol Stop: 11/27/17 08:59 Last Admin: 10/04/17 17:46 Dose: 300 mg Quetiapine Fumarate (Seroquel) 25 mg PO BID [facility] PRN Reason: Protocol Stop: 12/02/17 16:59 Last Admin: 10/04/17 17:46 Dose: 25 mg Tamsulosin HCl (Flomax) 0.4 mg PO DAILY [facility] Stop: 11/24/17 13:59 Last Admin: 10/04/17 09:50 Dose: 0.4 mg Zolpidem Tartrate (Ambien) 5 mg PO HS PRN PRN Reason: Insomnia Stop: 11/24/17 16:37 Last Admin: 10/04/17 21:11 Dose: 5 mg General: Alert, Other (Confused, not oriented) HEENT: Atraumatic Neck: Supple Cardiovascular: Regular rate Lungs: Clear to auscultation Abdomen: Bowel sounds Extremities: Other (No edema) Neurological: Normal gait Skin: Other (warm and dry) Psych/Mental Status: Other (Patient is awake, alert, confused, not oriented) Assessment/Plan - Assessment Assessment: Patient is awake, confused, not following verbal commands. Patient took his meds today. Dx: increased in agitation, Schizophrenia, muscle weakness. - Plan Plan: Patient is under Psychiatric care. Will continue SNF meds. Will continue to monitor. Nutritional Asmnt/Malnutr-PDOC - Dietary Evaluation Malnutrition Findings (Please click <Entered> for more info): Nutritional Asmnt/Malnutrition Start: 10/01/17 15: 02 Text: Status: Complete Freq: Document 10/01/17 15:02 JARON (Rec: 10/01/17 15:15 [email or web address] [email or web address]) Nutritional Asmnt/Malnutrition Patient General Information Nutritional Screening Moderate Risk Diagnosis psychosis Pertinent Medical Hx/Surgical Hx CAD dementia, schizophrenia, weakness Subjective Information Pt seen sitting in [facility] in dining room, at side. Per , pt has no denture/ teeth, would like to do ground diet d/t chewing difficulty on some food. Pt likes banana, scrambled eggs, milkd and cofee, does not eat cereal. Per notes, PO intake 75-100%. Current Diet Order/ Nutrition Support [facility] soft chopped Pertinent Medications theragran, seroquel Pertinent Labs 10/01 Na 138, K 4.3, Cl 110, BUN 26, Cr 1.9, Glucose 90, Ca 8.9, Alb 3.7 Nutritional Hx/Data Height 1.83 m Height (Calculated Centimeters) 182.9 Current Weight (lbs) 99.79 kg Weight (Calculated Kilograms) 99.8 Weight (Calculated Grams) 62760.3 [place] Body Weight 178 % [place] Body Weight 124 Body Mass Index (BMI) 29.8 Weight Status Overweight GI Symptoms GI Symptoms None Last BM none Skin Integrity/Comment: intact Current %PO Good (75-100%) Estimated Nutritional Goals Calories/Kcals/Kg 25-30 Kcals Calculated 2024--2429 based on IBW 81kg Protein g/k.8-1 Protein Calculated 65-81 Fluid: ml 2024--2429 Nutritional Problem No current Nutrition Prob Problem no nutrition problem at this time Malnutrition Alert Protein-Calorie Malnutrition N/A Is there a minimum of two criteria No selected? Query Text:Check all the applicable criteria. A minimum of two criteria are recommended for diagnosis of either severe or non-severe malnutrition. Intervention/Recommendation Comments 1. Recommend [facility] soft ground diet r/t chewing difficulty. RN made aware, will talk to MD . Updated pt diet profile. 2. Monitor PO intake and tolerance, wt weekly, labs and skin integrity 3. F/U as moderate risk in 3-5 days, 10/04-09/26 Expected Outcomes/Goals Expected Outcomes/Goals 1. PO intake to meet at least 75% of nutritional needs. 2. Wt stability, skin to remain intact, labs to approach WNL.
[2017-10-05] MEDS: Multivitamin Tab PO SCH (11:10)
[2017-10-05] MEDS: Nicotine 14 mg/24 hr Tdm TD SCH (11:10)
--- NOTE | 2017-10-05 15:59 | Progress Notes ---
DATE: 10/05/2017 SUBJECTIVE: Staff was spoken to. The patient is interviewed. Mood is noted to be irritable. Affect is constricted. Coping skills are noted to be still poor. The patient is very agitated and trying to shake the GD chair. The patient has been very resistive and has been becoming difficult to convince him to comply with the treatment. No side effects to the medications are noted at this time. ASSESSMENT: The patient is still grossly psychotic. PLAN: To continue the patient with Seroquel and followup. JOB# [id number]
[2017-10-05] MEDS: Atorvastatin Calcium 10 MG TAB PO SCH (21:00)
--- NOTE | 2017-10-06 08:52 | General Progress Note ---
Subjective - Review of Systems Service Date: 10/06/17 Subjective: Patient is awake, confused, not oriented. Objective - Results Result Diagrams: 10/02/17 09:25 10/02/17 09:25 Recent Labs: Laboratory Last Values WBC 6.8 Th/cmm (4.8-10.8) D 10/02/17 09:25 RBC 4.02 Mil/cmm (4.30-5.70) L 10/02/17 09:25 Hgb 12.6 gm/dL (12-16) 10/02/17 09:25 Hct 37.5 % (41.0-60) L D 10/02/17 09:25 MCV 93.2 fl (80-99) 10/02/17 09:25 MCH 31.3 pg (26.0-30.0) H 10/02/17 09:25 MCHC Differential 33.5 pg (28.0-36.0) 10/02/17 09:25 RDW 13.4 % (11.5-20.0) 10/02/17 09:25 Plt Count 205 Th/cmm (150-400) D 10/02/17 09:25 MPV 7.0 fl 10/02/17 09:25 Neutrophils % 66.8 % (40.0-80.0) 10/02/17 09:25 Lymphocytes % 22.6 % (20.0-50.0) 10/02/17 09:25 Monocytes % 8.3 % (2.0-10.0) 10/02/17 09:25 Eosinophils % 1.6 % (0.0-5.0) 10/02/17 09:25 Basophils % 0.7 % (0.0-2.0) 10/02/17 09:25 Sodium 140 mEq/L (136-145) 10/02/17 09:25 Potassium 4.0 mEq/L (3.5-5.1) 10/02/17 09:25 Chloride 104 mEq/L (98-107) 10/02/17 09:25 Carbon Dioxide 29.1 mEq/L (21.0-31.0) 10/02/17 09:25 Anion Gap 10.9 (7.0-16.0) 10/02/17 09:25 BUN 21 mg/dL (7-25) 10/02/17 09:25 Creatinine 0.7 mg/dL (0.7-1.3) 10/02/17 09:25 Est GFR ( Amer) > 60.0 ml/min (>90) 10/02/17 09:25 Est GFR (Non-Af Amer) > 60.0 ml/min 10/02/17 09:25 BUN/Creatinine Ratio 30.0 10/02/17 09:25 Glucose 97 mg/dL (70-105) 10/02/17 09:25 Calcium 9.4 mg/dL (8.6-10.3) 10/02/17 09:25 Total Bilirubin 0.7 mg/dL (0.3-1.0) 10/02/17 09:25 AST 23 U/L (13-39) 10/02/17 09:25 ALT 20 U/L (7-52) 10/02/17 09:25 Alkaline Phosphatase 96 U/L (34-104) 10/02/17 09:25 Ammonia 50 umol/L (16-53) 10/02/17 09:25 Total Protein 6.8 gm/dL (6.0-8.3) 10/02/17 09:25 Albumin 4.0 gm/dL (4.2-5.5) L 10/02/17 09:25 Globulin 2.8 gm/dL 10/02/17 09:25 Albumin/Globulin Ratio 1.4 (1.0-1.8) 10/02/17 09:25 TSH 5.30 uIU/ml (0.34-5.60) 09/25/17 05:22 Valproic Acid 85.4 ug/mL (50.0-100.0) 09/25/17 05:22 - Physical Exam Vitals and I&O: Vital Signs Temp 97.8 F 10/06/17 06:25 Pulse 62 10/06/17 06:25 Resp 19 10/06/17 06:25 BP 102/54 10/06/17 06:25 Pulse Ox 95 10/06/17 06:25 Intake & Output 10/05/17 10/06/17 10/06/17 18:59 06:59 18:59 Intake Total 890 120 Balance 890 120 Intake: Oral 890 120 Other: # Voids 4 1 # Bowel Movements 1 0 Active Medications: Current Medications Acetaminophen (Tylenol) 650 mg PO Q4HR PRN PRN Reason: Mild Pain / Temp above 100 Stop: 11/24/17 16:37 Atorvastatin Calcium (Lipitor) 20 mg PO HS [facility] Stop: 11/24/17 20:59 Last Admin: 10/05/17 21:00 Dose: 20 mg Magnesium Hydroxide (Milk Of Magnesia) 30 ml PO HS PRN PRN Reason: Constipation Multivitamins/Vitamin C (Theragran) 1 tab PO DAILY [facility] Stop: 11/25/17 08:59 Last Admin: 10/05/17 11:10 Dose: 1 tab Nicotine (Nicotine Transdermal System) 14 mg TD DAILY [facility] Stop: 11/24/17 13:59 Last Admin: 10/05/17 11:10 Dose: 14 mg Oxcarbazepine (Trileptal) 300 mg PO BID [facility] PRN Reason: Protocol Stop: 11/27/17 08:59 Last Admin: 10/05/17 16:47 Dose: 300 mg Quetiapine Fumarate (Seroquel) 25 mg PO BID [facility] PRN Reason: Protocol Stop: 12/02/17 16:59 Last Admin: 10/05/17 16:47 Dose: 25 mg Tamsulosin HCl (Flomax) 0.4 mg PO DAILY [facility] Stop: 11/24/17 13:59 Last Admin: 10/05/17 11:18 Dose: 0.4 mg Zolpidem Tartrate (Ambien) 5 mg PO HS PRN PRN Reason: Insomnia Stop: 11/24/17 16:37 Last Admin: 10/04/17 21:11 Dose: 5 mg General: Alert, Other (Confused, not oriented) HEENT: Atraumatic Neck: Supple Cardiovascular: Regular rate Lungs: Clear to auscultation Abdomen: Bowel sounds Extremities: Other (No edema) Neurological: Normal gait Skin: Other (warm and dry) Psych/Mental Status: Other (Patient is awake, alert, confused, not oriented) Assessment/Plan - Assessment Assessment: Patient is awake, confused, not following verbal commands. Patient took his meds today. Dx: increased in agitation, Schizophrenia, muscle weakness. - Plan Plan: Patient is under Psychiatric care. Will continue SNF meds. Will continue to monitor. Nutritional Asmnt/Malnutr-PDOC - Dietary Evaluation Malnutrition Findings (Please click <Entered> for more info): Nutritional Asmnt/Malnutrition Start: 10/01/17 15: 02 Text: Status: Complete Freq: Document 10/01/17 15:02 [place] (Rec: 10/01/17 15:15 JARON [email or web address]) Nutritional Asmnt/Malnutrition Patient General Information Nutritional Screening Moderate Risk Diagnosis psychosis Pertinent Medical Hx/Surgical Hx CAD dementia, schizophrenia, weakness Subjective Information Pt seen sitting in [facility] in dining room, at side. Per , pt has no denture/ teeth, would like to do ground diet d/t chewing difficulty on some food. Pt likes banana, scrambled eggs, milkd and cofee, does not eat cereal. Per notes, PO intake 75-100%. Current Diet Order/ Nutrition Support [facility] soft chopped Pertinent Medications theragran, seroquel Pertinent Labs 10/01 Na 138, K 4.3, Cl 110, BUN 26, Cr 1.9, Glucose 90, Ca 8.9, Alb 3.7 Nutritional Hx/Data Height 1.83 m Height (Calculated Centimeters) 182.9 Current Weight (lbs) 99.79 kg Weight (Calculated Kilograms) 99.8 Weight (Calculated Grams) 35858.3 [place] Body Weight 178 % [place] Body Weight 124 Body Mass Index (BMI) 29.8 Weight Status Overweight GI Symptoms GI Symptoms None Last BM none Skin Integrity/Comment: intact Current %PO Good (75-100%) Estimated Nutritional Goals Calories/Kcals/Kg 25-30 Kcals Calculated 2024--2429 based on IBW 81kg Protein g/k.8-1 Protein Calculated 65-81 Fluid: ml 2024--2429 Nutritional Problem No current Nutrition Prob Problem no nutrition problem at this time Malnutrition Alert Protein-Calorie Malnutrition N/A Is there a minimum of two criteria No selected? Query Text:Check all the applicable criteria. A minimum of two criteria are recommended for diagnosis of either severe or non-severe malnutrition. Intervention/Recommendation Comments 1. [facility] diet r/t chewing difficulty. RN made aware, will talk to MD . Updated pt diet profile. 2. Monitor PO intake and tolerance, wt weekly, labs and skin integrity 3. F/U as moderate risk in 3-5 days, 10/04-09/26 Expected Outcomes/Goals Expected Outcomes/Goals 1. PO intake to meet at least 75% of nutritional needs. 2. Wt stability, skin to remain intact, labs to approach WNL.
[2017-10-06] MEDS: Multivitamin Tab PO SCH (10:43)
[2017-10-06] MEDS: Nicotine 14 mg/24 hr Tdm TD SCH (10:43)
[2017-10-06] MEDS: Atorvastatin Calcium 10 MG TAB PO SCH (20:32)
--- NOTE | 2017-10-06 21:41 | Progress Notes ---
DATE: 10/06/2017 PSYCHIATRIC PROGRESS NOTE SUBJECTIVE: Staff was spoken to. The patient is interviewed. Mood is noted to be irritable. Affect is constricted. The patient has been placed on the Seroquel and has been able to tolerate the medications. Aggressive behavior has been coming down, but the patient continues to be very dysphoric and has no insight into his illness. It is becoming difficult mainly in the mornings when the patient's diaper needs to be changed. ASSESSMENT: The patient is still impulsive and aggressive. PLAN: To continue the patient with the supportive therapy. I encouraged the patient to verbalize the concerns rather than to act out. JOB# [id number]
[2017-10-07] MEDS: Multivitamin Tab PO SCH (08:53)
[2017-10-07] MEDS: Nicotine 14 mg/24 hr Tdm TD SCH (08:54)
--- NOTE | 2017-10-07 08:58 | General Progress Note ---
Subjective - Review of Systems Service Date: 10/07/17 Subjective: Patient is awake, confused, not oriented. Objective - Results Result Diagrams: 10/02/17 09:25 10/02/17 09:25 Recent Labs: Laboratory Last Values WBC 6.8 Th/cmm (4.8-10.8) D 10/02/17 09:25 RBC 4.02 Mil/cmm (4.30-5.70) L 10/02/17 09:25 Hgb 12.6 gm/dL (12-16) 10/02/17 09:25 Hct 37.5 % (41.0-60) L D 10/02/17 09:25 MCV 93.2 fl (80-99) 10/02/17 09:25 MCH 31.3 pg (26.0-30.0) H 10/02/17 09:25 MCHC Differential 33.5 pg (28.0-36.0) 10/02/17 09:25 RDW 13.4 % (11.5-20.0) 10/02/17 09:25 Plt Count 205 Th/cmm (150-400) D 10/02/17 09:25 MPV 7.0 fl 10/02/17 09:25 Neutrophils % 66.8 % (40.0-80.0) 10/02/17 09:25 Lymphocytes % 22.6 % (20.0-50.0) 10/02/17 09:25 Monocytes % 8.3 % (2.0-10.0) 10/02/17 09:25 Eosinophils % 1.6 % (0.0-5.0) 10/02/17 09:25 Basophils % 0.7 % (0.0-2.0) 10/02/17 09:25 Sodium 140 mEq/L (136-145) 10/02/17 09:25 Potassium 4.0 mEq/L (3.5-5.1) 10/02/17 09:25 Chloride 104 mEq/L (98-107) 10/02/17 09:25 Carbon Dioxide 29.1 mEq/L (21.0-31.0) 10/02/17 09:25 Anion Gap 10.9 (7.0-16.0) 10/02/17 09:25 BUN 21 mg/dL (7-25) 10/02/17 09:25 Creatinine 0.7 mg/dL (0.7-1.3) 10/02/17 09:25 Est GFR ( Amer) > 60.0 ml/min (>90) 10/02/17 09:25 Est GFR (Non-Af Amer) > 60.0 ml/min 10/02/17 09:25 BUN/Creatinine Ratio 30.0 10/02/17 09:25 Glucose 97 mg/dL (70-105) 10/02/17 09:25 Calcium 9.4 mg/dL (8.6-10.3) 10/02/17 09:25 Total Bilirubin 0.7 mg/dL (0.3-1.0) 10/02/17 09:25 AST 23 U/L (13-39) 10/02/17 09:25 ALT 20 U/L (7-52) 10/02/17 09:25 Alkaline Phosphatase 96 U/L (34-104) 10/02/17 09:25 Ammonia 50 umol/L (16-53) 10/02/17 09:25 Total Protein 6.8 gm/dL (6.0-8.3) 10/02/17 09:25 Albumin 4.0 gm/dL (4.2-5.5) L 10/02/17 09:25 Globulin 2.8 gm/dL 10/02/17 09:25 Albumin/Globulin Ratio 1.4 (1.0-1.8) 10/02/17 09:25 TSH 5.30 uIU/ml (0.34-5.60) 09/25/17 05:22 Valproic Acid 85.4 ug/mL (50.0-100.0) 09/25/17 05:22 - Physical Exam Vitals and I&O: Vital Signs Temp 97.2 F 10/07/17 06:34 Pulse 65 10/07/17 06:34 Resp 19 10/07/17 06:34 BP 116/66 10/07/17 06:34 Pulse Ox 97 10/07/17 06:34 Intake & Output 10/06/17 10/07/17 10/07/17 18:59 06:59 18:59 Intake Total 120 Balance 120 Intake: Oral 120 Other: # Voids 3 Active Medications: Current Medications Acetaminophen (Tylenol) 650 mg PO Q4HR PRN PRN Reason: Mild Pain / Temp above 100 Stop: 11/24/17 16:37 Atorvastatin Calcium (Lipitor) 20 mg PO HS [facility] Stop: 11/24/17 20:59 Last Admin: 10/06/17 20:32 Dose: 20 mg Magnesium Hydroxide (Milk Of Magnesia) 30 ml PO HS PRN PRN Reason: Constipation Multivitamins/Vitamin C (Theragran) 1 tab PO DAILY [facility] Stop: 11/25/17 08:59 Last Admin: 10/07/17 08:53 Dose: 1 tab Nicotine (Nicotine Transdermal System) 14 mg TD DAILY [facility] Stop: 11/24/17 13:59 Last Admin: 10/07/17 08:54 Dose: 14 mg Oxcarbazepine (Trileptal) 300 mg PO BID [facility] PRN Reason: Protocol Stop: 11/27/17 08:59 Last Admin: 10/07/17 08:54 Dose: 300 mg Quetiapine Fumarate (Seroquel) 25 mg PO BID [facility] PRN Reason: Protocol Stop: 12/02/17 16:59 Last Admin: 10/07/17 08:54 Dose: 25 mg Tamsulosin HCl (Flomax) 0.4 mg PO DAILY [facility] Stop: 11/24/17 13:59 Last Admin: 10/07/17 08:54 Dose: 0.4 mg Zolpidem Tartrate (Ambien) 5 mg PO HS PRN PRN Reason: Insomnia Stop: 11/24/17 16:37 Last Admin: 10/06/17 20:32 Dose: 5 mg General: Alert, Other (Confused, not oriented) HEENT: Atraumatic Neck: Supple Cardiovascular: Regular rate Lungs: Clear to auscultation Abdomen: Bowel sounds Extremities: Other (No edema) Neurological: Normal gait Skin: Other (warm and dry) Psych/Mental Status: Other (Patient is awake, alert, confused, not oriented) Assessment/Plan - Assessment Assessment: Patient is awake, confused, not following verbal commands. Patient took his meds today. Dx: increased in agitation, Schizophrenia, muscle weakness. - Plan Plan: Patient is under Psychiatric care. Will continue SNF meds. Will continue to monitor. Nutritional Asmnt/Malnutr-PDOC - Dietary Evaluation Malnutrition Findings (Please click <Entered> for more info): Nutritional Asmnt/Malnutrition Start: 10/01/17 15: 02 Text: Status: Complete Freq: Document 10/01/17 15:02 [place] (Rec: 10/01/17 15:15 [place] [email or web address]) Nutritional Asmnt/Malnutrition Patient General Information Nutritional Screening Moderate Risk Diagnosis psychosis Pertinent Medical Hx/Surgical Hx CAD dementia, schizophrenia, weakness Subjective Information Pt seen sitting in [facility] in dining room, at side. Per , pt has no denture/ teeth, would like to do ground diet d/t chewing difficulty on some food. Pt likes banana, scrambled eggs, milkd and cofee, does not eat cereal. Per notes, PO intake 75-100%. Current Diet Order/ Nutrition Support [facility] soft chopped Pertinent Medications theragran, seroquel Pertinent Labs 10/01 Na 138, K 4.3, Cl 110, BUN 26, Cr 1.9, Glucose 90, Ca 8.9, Alb 3.7 Nutritional Hx/Data Height 1.83 m Height (Calculated Centimeters) 182.9 Current Weight (lbs) 99.79 kg Weight (Calculated Kilograms) 99.8 Weight (Calculated Grams) 60567.3 [place] Body Weight 178 % [place] Body Weight 124 Body Mass Index (BMI) 29.8 Weight Status Overweight GI Symptoms GI Symptoms None Last BM none Skin Integrity/Comment: intact Current %PO Good (75-100%) Estimated Nutritional Goals Calories/Kcals/Kg 25-30 Kcals Calculated 2024--2429 based on IBW 81kg Protein g/k.8-1 Protein Calculated 65-81 Fluid: ml 2024--2429 Nutritional Problem No current Nutrition Prob Problem no nutrition problem at this time Malnutrition Alert Protein-Calorie Malnutrition N/A Is there a minimum of two criteria No selected? Query Text:Check all the applicable criteria. A minimum of two criteria are recommended for diagnosis of either severe or non-severe malnutrition. Intervention/Recommendation Comments 1. Recommend [facility] soft ground diet r/t chewing difficulty. RN made aware, will talk to . Updated pt diet profile. 2. Monitor PO intake and tolerance, wt weekly, labs and skin integrity 3. F/U as moderate risk in 3-5 days, 10/04-09/26 Expected Outcomes/Goals Expected Outcomes/Goals 1. PO intake to meet at least 75% of nutritional needs. 2. Wt stability, skin to remain intact, labs to approach WNL.
--- NOTE | 2017-10-07 09:43 | Progress Notes ---
DATE: 10/07/2017 SUBJECTIVE: Staff was spoken to. The patient is interviewed. Mood is noted to be anxious. Affect is constricted. The patient's irritability and anger are coming down. The patient has been able to tolerate the Seroquel 25 mg twice a day. The patient is also on oxcarbazepine 300 mg twice a day. No side effects to the medications are noted, but the patient continues to be agitated moods in the morning compared to the rest of the time. No side effects to the medications are noted at this time. ASSESSMENT: The patient is still psychotic and impulsive. PLAN: To continue the patient with the supportive therapy and followup. JOB# [id number]
[2017-10-07] MEDS: Atorvastatin Calcium 10 MG TAB PO SCH (21:19)
[2017-10-08] MEDS: Multivitamin Tab PO SCH (08:07)
[2017-10-08] MEDS: Nicotine 14 mg/24 hr Tdm TD SCH (08:52)
--- NOTE | 2017-10-08 09:13 | General Progress Note ---
Subjective - Review of Systems Service Date: 10/08/17 Subjective: Patient is awake, confused, not oriented. Objective - Results Result Diagrams: 10/02/17 09:25 10/02/17 09:25 Recent Labs: Laboratory Last Values WBC 6.8 Th/cmm (4.8-10.8) D 10/02/17 09:25 RBC 4.02 Mil/cmm (4.30-5.70) L 10/02/17 09:25 Hgb 12.6 gm/dL (12-16) 10/02/17 09:25 Hct 37.5 % (41.0-60) L D 10/02/17 09:25 MCV 93.2 fl (80-99) 10/02/17 09:25 MCH 31.3 pg (26.0-30.0) H 10/02/17 09:25 MCHC Differential 33.5 pg (28.0-36.0) 10/02/17 09:25 RDW 13.4 % (11.5-20.0) 10/02/17 09:25 Plt Count 205 Th/cmm (150-400) D 10/02/17 09:25 MPV 7.0 fl 10/02/17 09:25 Neutrophils % 66.8 % (40.0-80.0) 10/02/17 09:25 Lymphocytes % 22.6 % (20.0-50.0) 10/02/17 09:25 Monocytes % 8.3 % (2.0-10.0) 10/02/17 09:25 Eosinophils % 1.6 % (0.0-5.0) 10/02/17 09:25 Basophils % 0.7 % (0.0-2.0) 10/02/17 09:25 Sodium 140 mEq/L (136-145) 10/02/17 09:25 Potassium 4.0 mEq/L (3.5-5.1) 10/02/17 09:25 Chloride 104 mEq/L (98-107) 10/02/17 09:25 Carbon Dioxide 29.1 mEq/L (21.0-31.0) 10/02/17 09:25 Anion Gap 10.9 (7.0-16.0) 10/02/17 09:25 BUN 21 mg/dL (7-25) 10/02/17 09:25 Creatinine 0.7 mg/dL (0.7-1.3) 10/02/17 09:25 Est GFR ( Amer) > 60.0 ml/min (>90) 10/02/17 09:25 Est GFR (Non-Af Amer) > 60.0 ml/min 10/02/17 09:25 BUN/Creatinine Ratio 30.0 10/02/17 09:25 Glucose 97 mg/dL (70-105) 10/02/17 09:25 Calcium 9.4 mg/dL (8.6-10.3) 10/02/17 09:25 Total Bilirubin 0.7 mg/dL (0.3-1.0) 10/02/17 09:25 AST 23 U/L (13-39) 10/02/17 09:25 ALT 20 U/L (7-52) 10/02/17 09:25 Alkaline Phosphatase 96 U/L (34-104) 10/02/17 09:25 Ammonia 50 umol/L (16-53) 10/02/17 09:25 Total Protein 6.8 gm/dL (6.0-8.3) 10/02/17 09:25 Albumin 4.0 gm/dL (4.2-5.5) L 10/02/17 09:25 Globulin 2.8 gm/dL 10/02/17 09:25 Albumin/Globulin Ratio 1.4 (1.0-1.8) 10/02/17 09:25 TSH 5.30 uIU/ml (0.34-5.60) 09/25/17 05:22 Valproic Acid 85.4 ug/mL (50.0-100.0) 09/25/17 05:22 - Physical Exam Vitals and I&O: Vital Signs Temp 97.3 F 10/08/17 06:19 Pulse 66 10/08/17 06:19 Resp 19 10/08/17 06:19 BP 108/66 10/08/17 06:19 Pulse Ox 97 10/08/17 06:19 Intake & Output 10/07/17 10/08/17 10/08/17 18:59 06:59 18:59 Intake Total 1200 120 Balance 1200 120 Intake: Oral 1200 120 Other: # Voids 3 3 # Bowel Movements 1 Active Medications: Current Medications Acetaminophen (Tylenol) 650 mg PO Q4HR PRN PRN Reason: Mild Pain / Temp above 100 Stop: 11/24/17 16:37 Atorvastatin Calcium (Lipitor) 20 mg PO HS [facility] Stop: 11/24/17 20:59 Last Admin: 10/07/17 21:19 Dose: 20 mg Magnesium Hydroxide (Milk Of Magnesia) 30 ml PO HS PRN PRN Reason: Constipation Multivitamins/Vitamin C (Theragran) 1 tab PO DAILY [facility] Stop: 11/25/17 08:59 Last Admin: 10/08/17 08:07 Dose: 1 tab Nicotine (Nicotine Transdermal System) 14 mg TD DAILY [facility] Stop: 11/24/17 13:59 Last Admin: 10/08/17 08:52 Dose: 14 mg Oxcarbazepine (Trileptal) 300 mg PO BID [facility] PRN Reason: Protocol Stop: 11/27/17 08:59 Last Admin: 10/08/17 08:07 Dose: 300 mg Quetiapine Fumarate (Seroquel) 25 mg PO BID [facility] PRN Reason: Protocol Stop: 12/02/17 16:59 Last Admin: 10/08/17 08:07 Dose: 25 mg Tamsulosin HCl (Flomax) 0.4 mg PO DAILY [facility] Stop: 11/24/17 13:59 Last Admin: 10/08/17 08:07 Dose: 0.4 mg Zolpidem Tartrate (Ambien) 5 mg PO HS PRN PRN Reason: Insomnia Stop: 11/24/17 16:37 Last Admin: 10/08/17 01:18 Dose: 5 mg General: Alert, Other (Confused, not oriented) HEENT: Atraumatic Neck: Supple Cardiovascular: Regular rate Lungs: Clear to auscultation Abdomen: Bowel sounds Extremities: Other (No edema) Neurological: Normal gait Skin: Other (warm and dry) Psych/Mental Status: Other (Patient is awake, alert, confused, not oriented) Assessment/Plan - Assessment Assessment: Patient is awake, confused, not following verbal commands. Patient took his meds today. Dx: increased in agitation, Schizophrenia, muscle weakness. - Plan Plan: Patient is under Psychiatric care. Will continue SNF meds. Will continue to monitor. Nutritional Asmnt/Malnutr-PDOC - Dietary Evaluation Malnutrition Findings (Please click <Entered> for more info): Nutritional Asmnt/Malnutrition Start: 10/01/17 15: 02 Text: Status: Complete Freq: Document 10/01/17 15:02 [place] (Rec: 10/01/17 15:15 [place] [email or web address]) Nutritional Asmnt/Malnutrition Patient General Information Nutritional Screening Moderate Risk Diagnosis psychosis Pertinent Medical Hx/Surgical Hx CAD dementia, schizophrenia, weakness Subjective Information Pt seen sitting in [facility] in dining room, at side. Per , pt has no denture/ teeth, would like to do ground diet d/t chewing difficulty on some food. Pt likes banana, scrambled eggs, milkd and cofee, does not eat cereal. Per notes, PO intake 75-100%. Current Diet Order/ Nutrition Support [facility] soft chopped Pertinent Medications theragran, seroquel Pertinent Labs 10/01 Na 138, K 4.3, Cl 110, BUN 26, Cr 1.9, Glucose 90, Ca 8.9, Alb 3.7 Nutritional Hx/Data Height 1.83 m Height (Calculated Centimeters) 182.9 Current Weight (lbs) 99.79 kg Weight (Calculated Kilograms) 99.8 Weight (Calculated Grams) 57401.3 [place] Body Weight 178 % [place] Body Weight 124 Body Mass Index (BMI) 29.8 Weight Status Overweight GI Symptoms GI Symptoms None Last BM none Skin Integrity/Comment: intact Current %PO Good (75-100%) Estimated Nutritional Goals Calories/Kcals/Kg 25-30 Kcals Calculated 2024--2429 based on IBW 81kg Protein g/k.8-1 Protein Calculated 65-81 Fluid: ml 2024--2429 Nutritional Problem No current Nutrition Prob Problem no nutrition problem at this time Malnutrition Alert Protein-Calorie Malnutrition N/A Is there a minimum of two criteria No selected? Query Text:Check all the applicable criteria. A minimum of two criteria are recommended for diagnosis of either severe or non-severe malnutrition. Intervention/Recommendation Comments 1. Recommend [facility] soft ground diet r/t chewing difficulty. RN made aware, will talk to MD . Updated pt diet profile. 2. Monitor PO intake and tolerance, wt weekly, labs and skin integrity 3. F/U as moderate risk in 3-5 days, 10/04-09/26 Expected Outcomes/Goals Expected Outcomes/Goals 1. PO intake to meet at least 75% of nutritional needs. 2. Wt stability, skin to remain intact, labs to approach WNL.
[2017-10-08] MEDS: Atorvastatin Calcium 10 MG TAB PO SCH (20:35)
--- NOTE | 2017-10-08 21:37 | Progress Notes ---
DATE: 10/08/2017 SUBJECTIVE: Staff was spoken to. The patient is interviewed. Mood is noted to be irritable. Affect is constricted. The patient is reported to have been out of control. The patient has been screaming and yelling when the family came and they are saying that the patient is not going to be accepted unless the patient is going to be taken care of and calmed down. The patient is currently on 25 mg of the Seroquel. I am planning to increase the dose on the Seroquel to 50 mg twice a day and the patient is going to be followed up with the supportive therapy. ASSESSMENT: The patient is still grossly psychotic. PLAN: To increase the dose on the medication and followup. Please note that the patient is not ready to be discharged to a lower level of care yet. JOB# [id number]
[2017-10-09] MEDS: Multivitamin Tab PO SCH (08:12)
[2017-10-09] MEDS: Nicotine 14 mg/24 hr Tdm TD SCH (08:23)
--- NOTE | 2017-10-09 12:53 | General Progress Note ---
Subjective - Review of Systems Service Date: 10/09/17 Subjective: Patient is awake, confused, not oriented. Objective - Results Result Diagrams: 10/02/17 09:25 10/02/17 09:25 Recent Labs: Laboratory Last Values WBC 6.8 Th/cmm (4.8-10.8) D 10/02/17 09:25 RBC 4.02 Mil/cmm (4.30-5.70) L 10/02/17 09:25 Hgb 12.6 gm/dL (12-16) 10/02/17 09:25 Hct 37.5 % (41.0-60) L D 10/02/17 09:25 MCV 93.2 fl (80-99) 10/02/17 09:25 MCH 31.3 pg (26.0-30.0) H 10/02/17 09:25 MCHC Differential 33.5 pg (28.0-36.0) 10/02/17 09:25 RDW 13.4 % (11.5-20.0) 10/02/17 09:25 Plt Count 205 Th/cmm (150-400) D 10/02/17 09:25 MPV 7.0 fl 10/02/17 09:25 Neutrophils % 66.8 % (40.0-80.0) 10/02/17 09:25 Lymphocytes % 22.6 % (20.0-50.0) 10/02/17 09:25 Monocytes % 8.3 % (2.0-10.0) 10/02/17 09:25 Eosinophils % 1.6 % (0.0-5.0) 10/02/17 09:25 Basophils % 0.7 % (0.0-2.0) 10/02/17 09:25 Sodium 140 mEq/L (136-145) 10/02/17 09:25 Potassium 4.0 mEq/L (3.5-5.1) 10/02/17 09:25 Chloride 104 mEq/L (98-107) 10/02/17 09:25 Carbon Dioxide 29.1 mEq/L (21.0-31.0) 10/02/17 09:25 Anion Gap 10.9 (7.0-16.0) 10/02/17 09:25 BUN 21 mg/dL (7-25) 10/02/17 09:25 Creatinine 0.7 mg/dL (0.7-1.3) 10/02/17 09:25 Est GFR ( Amer) > 60.0 ml/min (>90) 10/02/17 09:25 Est GFR (Non-Af Amer) > 60.0 ml/min 10/02/17 09:25 BUN/Creatinine Ratio 30.0 10/02/17 09:25 Glucose 97 mg/dL (70-105) 10/02/17 09:25 Calcium 9.4 mg/dL (8.6-10.3) 10/02/17 09:25 Total Bilirubin 0.7 mg/dL (0.3-1.0) 10/02/17 09:25 AST 23 U/L (13-39) 10/02/17 09:25 ALT 20 U/L (7-52) 10/02/17 09:25 Alkaline Phosphatase 96 U/L (34-104) 10/02/17 09:25 Ammonia 49 umol/L (16-53) 10/08/17 13:45 Total Protein 6.8 gm/dL (6.0-8.3) 10/02/17 09:25 Albumin 4.0 gm/dL (4.2-5.5) L 10/02/17 09:25 Globulin 2.8 gm/dL 10/02/17 09:25 Albumin/Globulin Ratio 1.4 (1.0-1.8) 10/02/17 09:25 TSH 5.30 uIU/ml (0.34-5.60) 09/25/17 05:22 Valproic Acid 85.4 ug/mL (50.0-100.0) 09/25/17 05:22 - Physical Exam Vitals and I&O: Vital Signs Temp 97.8 F 10/08/17 15:52 Pulse 101 10/08/17 15:52 Resp 20 10/08/17 15:52 BP 114/56 10/08/17 15:52 Pulse Ox 98 10/08/17 15:52 Intake & Output 10/08/17 10/09/17 10/09/17 18:59 06:59 18:59 Intake Total 480 Balance 480 Intake: Oral 480 Other: # Voids 3 # Bowel Movements 1 Active Medications: Current Medications Acetaminophen (Tylenol) 650 mg PO Q4HR PRN PRN Reason: Mild Pain / Temp above 100 Stop: 11/24/17 16:37 Atorvastatin Calcium (Lipitor) 20 mg PO HS [facility] Stop: 11/24/17 20:59 Last Admin: 10/08/17 20:35 Dose: 20 mg Hydroxyzine Pamoate (Vistaril) 25 mg PO Q12HR PRN; Protocol PRN Reason: Anxiety Stop: 12/07/17 20:59 Last Admin: 10/09/17 08:23 Dose: 25 mg Magnesium Hydroxide (Milk Of Magnesia) 30 ml PO HS PRN PRN Reason: Constipation Multivitamins/Vitamin C (Theragran) 1 tab PO DAILY [facility] Stop: 11/25/17 08:59 Last Admin: 10/09/17 08:12 Dose: 1 tab Nicotine (Nicotine Transdermal System) 14 mg TD DAILY [facility] Stop: 11/24/17 13:59 Last Admin: 10/09/17 08:23 Dose: 14 mg Oxcarbazepine (Trileptal) 300 mg PO BID [facility] PRN Reason: Protocol Stop: 11/27/17 08:59 Last Admin: 10/09/17 08:12 Dose: 300 mg Quetiapine Fumarate (Seroquel) 50 mg PO BID [facility] PRN Reason: Protocol Stop: 12/02/17 16:59 Last Admin: 10/09/17 08:12 Dose: 50 mg Tamsulosin HCl (Flomax) 0.4 mg PO DAILY [facility] Stop: 11/24/17 13:59 Last Admin: 10/09/17 08:12 Dose: 0.4 mg Zolpidem Tartrate (Ambien) 5 mg PO HS PRN PRN Reason: Insomnia Stop: 11/24/17 16:37 Last Admin: 10/08/17 20:35 Dose: 5 mg General: Alert, Other (Confused, not oriented) HEENT: Atraumatic Neck: Supple Cardiovascular: Regular rate Lungs: Clear to auscultation Abdomen: Bowel sounds Extremities: Other (No edema) Neurological: Normal gait Skin: Other (warm and dry) Psych/Mental Status: Other (Patient is awake, alert, confused, not oriented) Assessment/Plan - Assessment Assessment: Patient is awake, confused, not following verbal commands. Patient took his meds today. Dx: increased in agitation, Schizophrenia, muscle weakness. - Plan Plan: Patient is under Psychiatric care. Will continue SNF meds. Will continue to monitor. Nutritional Asmnt/Malnutr-PDOC - Dietary Evaluation Malnutrition Findings (Please click <Entered> for more info): Nutritional Asmnt/Malnutrition Start: 10/01/17 15: 02 Text: Status: Complete Freq: Document 10/01/17 15:02 [place] (Rec: 10/01/17 15:15 [facility] [email or web address]) Nutritional Asmnt/Malnutrition Patient General Information Nutritional Screening Moderate Risk Diagnosis psychosis Pertinent Medical Hx/Surgical Hx CAD dementia, schizophrenia, weakness Subjective Information Pt seen sitting in [facility] in dining room, at side. Per , pt has no denture/ teeth, would like to do ground diet d/t chewing difficulty on some food. Pt likes banana, scrambled eggs, milkd and cofee, does not eat cereal. Per notes, PO intake 75-100%. Current Diet Order/ Nutrition Support [facility] soft chopped Pertinent Medications theragran, seroquel Pertinent Labs 10/01 Na 138, K 4.3, Cl 110, BUN 26, Cr 1.9, Glucose 90, Ca 8.9, Alb 3.7 Nutritional Hx/Data Height 1.83 m Height (Calculated Centimeters) 182.9 Current Weight (lbs) 99.79 kg Weight (Calculated Kilograms) 99.8 Weight (Calculated Grams) 38321.3 [place] Body Weight 178 % [place] Body Weight 124 Body Mass Index (BMI) 29.8 Weight Status Overweight GI Symptoms GI Symptoms None Last BM none Skin Integrity/Comment: intact Current %PO Good (75-100%) Estimated Nutritional Goals Calories/Kcals/Kg 25-30 Kcals Calculated 2024--2429 based on IBW 81kg Protein g/k.8-1 Protein Calculated 65-81 Fluid: ml 2024--2429 Nutritional Problem No current Nutrition Prob Problem no nutrition problem at this time Malnutrition Alert Protein-Calorie Malnutrition N/A Is there a minimum of two criteria No selected? Query Text:Check all the applicable criteria. A minimum of two criteria are recommended for diagnosis of either severe or non-severe malnutrition. Intervention/Recommendation Comments 1. Recommend [facility] soft ground diet r/t chewing difficulty. RN made aware, will talk to MD . Updated pt diet profile. 2. Monitor PO intake and tolerance, wt weekly, labs and skin integrity 3. F/U as moderate risk in 3-5 days, 10/04-09/26 Expected Outcomes/Goals Expected Outcomes/Goals 1. PO intake to meet at least 75% of nutritional needs. 2. Wt stability, skin to remain intact, labs to approach WNL.
--- NOTE | 2017-10-09 15:29 | Progress Notes ---
DATE: 10/09/2017 SUBJECTIVE: Staff was spoken to. The patient is interviewed. Mood is noted to be irritable. Affect is constricted. Insight and judgment at this time are impaired. Impulse control seems to be poor. Coping skills are noted to be very poor. The patient has been having difficult time to cope with the stress. No side effects to the medications are noted. The patient's Seroquel has been increased yesterday and currently, he is getting the 50 mg twice a day. The agitated behavior is still a problem and the patient is still not ready to be discharged to a lower level of care yet. ASSESSMENT: The patient is still depressed. PLAN: To continue the patient with the supportive therapy and followup. [facility]# [id number]
[2017-10-09] MEDS: Atorvastatin Calcium 10 MG TAB PO SCH (21:08)
[2017-10-10] MEDS: Multivitamin Tab PO SCH (08:57)
[2017-10-10] MEDS: Nicotine 14 mg/24 hr Tdm TD SCH (09:07)
--- NOTE | 2017-10-10 14:48 | General Progress Note ---
Subjective - Review of Systems Service Date: 10/10/17 Subjective: Patient is awake, confused, not oriented. Objective - Results Result Diagrams: 10/02/17 09:25 10/02/17 09:25 Recent Labs: Laboratory Last Values WBC 6.8 Th/cmm (4.8-10.8) D 10/02/17 09:25 RBC 4.02 Mil/cmm (4.30-5.70) L 10/02/17 09:25 Hgb 12.6 gm/dL (12-16) 10/02/17 09:25 Hct 37.5 % (41.0-60) L D 10/02/17 09:25 MCV 93.2 fl (80-99) 10/02/17 09:25 MCH 31.3 pg (26.0-30.0) H 10/02/17 09:25 MCHC Differential 33.5 pg (28.0-36.0) 10/02/17 09:25 RDW 13.4 % (11.5-20.0) 10/02/17 09:25 Plt Count 205 Th/cmm (150-400) D 10/02/17 09:25 MPV 7.0 fl 10/02/17 09:25 Neutrophils % 66.8 % (40.0-80.0) 10/02/17 09:25 Lymphocytes % 22.6 % (20.0-50.0) 10/02/17 09:25 Monocytes % 8.3 % (2.0-10.0) 10/02/17 09:25 Eosinophils % 1.6 % (0.0-5.0) 10/02/17 09:25 Basophils % 0.7 % (0.0-2.0) 10/02/17 09:25 Sodium 140 mEq/L (136-145) 10/02/17 09:25 Potassium 4.0 mEq/L (3.5-5.1) 10/02/17 09:25 Chloride 104 mEq/L (98-107) 10/02/17 09:25 Carbon Dioxide 29.1 mEq/L (21.0-31.0) 10/02/17 09:25 Anion Gap 10.9 (7.0-16.0) 10/02/17 09:25 BUN 21 mg/dL (7-25) 10/02/17 09:25 Creatinine 0.7 mg/dL (0.7-1.3) 10/02/17 09:25 Est GFR ( Amer) > 60.0 ml/min (>90) 10/02/17 09:25 Est GFR (Non-Af Amer) > 60.0 ml/min 10/02/17 09:25 BUN/Creatinine Ratio 30.0 10/02/17 09:25 Glucose 97 mg/dL (70-105) 10/02/17 09:25 Calcium 9.4 mg/dL (8.6-10.3) 10/02/17 09:25 Total Bilirubin 0.7 mg/dL (0.3-1.0) 10/02/17 09:25 AST 23 U/L (13-39) 10/02/17 09:25 ALT 20 U/L (7-52) 10/02/17 09:25 Alkaline Phosphatase 96 U/L (34-104) 10/02/17 09:25 Ammonia 49 umol/L (16-53) 10/08/17 13:45 Total Protein 6.8 gm/dL (6.0-8.3) 10/02/17 09:25 Albumin 4.0 gm/dL (4.2-5.5) L 10/02/17 09:25 Globulin 2.8 gm/dL 10/02/17 09:25 Albumin/Globulin Ratio 1.4 (1.0-1.8) 10/02/17 09:25 TSH 5.30 uIU/ml (0.34-5.60) 09/25/17 05:22 Valproic Acid 85.4 ug/mL (50.0-100.0) 09/25/17 05:22 - Physical Exam Vitals and I&O: Vital Signs Temp 97.8 F 10/09/17 20:00 Pulse 89 10/09/17 20:00 Resp 20 10/09/17 20:00 BP 103/64 10/09/17 20:00 Pulse Ox 98 10/09/17 20:00 Intake & Output 10/09/17 10/10/17 10/10/17 18:59 06:59 18:59 Intake Total 1600 120 Balance 1600 120 Intake: Oral 1600 120 Other: # Voids 4 3 # Bowel Movements 2 Active Medications: Current Medications Acetaminophen (Tylenol) 650 mg PO Q4HR PRN PRN Reason: Mild Pain / Temp above 100 Stop: 11/24/17 16:37 Atorvastatin Calcium (Lipitor) 20 mg PO HS [facility] Stop: 11/24/17 20:59 Last Admin: 10/09/17 21:08 Dose: 20 mg Hydroxyzine Pamoate (Vistaril) 25 mg PO Q12HR PRN; Protocol PRN Reason: Anxiety Stop: 12/07/17 20:59 Last Admin: 10/10/17 09:08 Dose: 25 mg Magnesium Hydroxide (Milk Of Magnesia) 30 ml PO HS PRN PRN Reason: Constipation Multivitamins/Vitamin C (Theragran) 1 tab PO DAILY [facility] Stop: 11/25/17 08:59 Last Admin: 10/10/17 08:57 Dose: 1 tab Nicotine (Nicotine Transdermal System) 14 mg TD DAILY [facility] Stop: 11/24/17 13:59 Last Admin: 10/10/17 09:07 Dose: 14 mg Oxcarbazepine (Trileptal) 300 mg PO BID [facility] PRN Reason: Protocol Stop: 11/27/17 08:59 Last Admin: 10/10/17 08:57 Dose: 300 mg Quetiapine Fumarate (Seroquel) 50 mg PO BID [facility] PRN Reason: Protocol Stop: 10/10/17 16:59 Last Admin: 10/10/17 08:57 Dose: 50 mg Quetiapine Fumarate (Seroquel) 25 mg PO BID [facility] PRN Reason: Protocol Stop: 12/09/17 16:59 Tamsulosin HCl (Flomax) 0.4 mg PO DAILY [facility] Stop: 11/24/17 13:59 Last Admin: 10/10/17 08:57 Dose: 0.4 mg Zolpidem Tartrate (Ambien) 5 mg PO HS PRN PRN Reason: Insomnia Stop: 11/24/17 16:37 Last Admin: 10/09/17 21:08 Dose: 5 mg General: Alert, Other (Confused, not oriented) HEENT: Atraumatic Neck: Supple Cardiovascular: Regular rate Lungs: Clear to auscultation Abdomen: Bowel sounds Extremities: Other (No edema) Neurological: Normal gait Skin: Other (warm and dry) Psych/Mental Status: Other (Patient is awake, alert, confused, not oriented) Assessment/Plan - Assessment Assessment: Patient is awake, confused, not following verbal commands. Patient took his meds today. Dx: increased in agitation, Schizophrenia, muscle weakness. - Plan Plan: Patient is under Psychiatric care. Will continue SNF meds. Will continue to monitor. Nutritional Asmnt/Malnutr-PDOC - Dietary Evaluation Malnutrition Findings (Please click <Entered> for more info): Nutritional Asmnt/Malnutrition Start: 10/01/17 15: 02 Text: Status: Complete Freq: Document 10/01/17 15:02 [facility] (Rec: 10/01/17 15:15 [facility] [email or web address]) Nutritional Asmnt/Malnutrition Patient General Information Nutritional Screening Moderate Risk Diagnosis psychosis Pertinent Medical Hx/Surgical Hx CAD dementia, schizophrenia, weakness Subjective Information Pt seen sitting in [facility] in dining room, at side. Per , pt has no denture/ teeth, would like to do ground diet d/t chewing difficulty on some food. Pt likes banana, scrambled eggs, milkd and cofee, does not eat cereal. Per notes, PO intake 75-100%. Current Diet Order/ Nutrition Support [facility] soft chopped Pertinent Medications theragran, seroquel Pertinent Labs 10/01 Na 138, K 4.3, Cl 110, BUN 26, Cr 1.9, Glucose 90, Ca 8.9, Alb 3.7 Nutritional Hx/Data Height 1.83 m Height (Calculated Centimeters) 182.9 Current Weight (lbs) 99.79 kg Weight (Calculated Kilograms) 99.8 Weight (Calculated Grams) 23899.3 [place] Body Weight 178 % [place] Body Weight 124 Body Mass Index (BMI) 29.8 Weight Status Overweight GI Symptoms GI Symptoms None Last BM none Skin Integrity/Comment: intact Current %PO Good (75-100%) Estimated Nutritional Goals Calories/Kcals/Kg 25-30 Kcals Calculated 2024--2429 based on IBW 81kg Protein g/k.8-1 Protein Calculated 65-81 Fluid: ml 2024--2429 Nutritional Problem No current Nutrition Prob Problem no nutrition problem at this time Malnutrition Alert Protein-Calorie Malnutrition N/A Is there a minimum of two criteria No selected? Query Text:Check all the applicable criteria. A minimum of two criteria are recommended for diagnosis of either severe or non-severe malnutrition. Intervention/Recommendation Comments 1. Recommend [facility] soft ground diet r/t chewing difficulty. RN made aware, will talk to MD . Updated pt diet profile. 2. Monitor PO intake and tolerance, wt weekly, labs and skin integrity 3. F/U as moderate risk in 3-5 days, 10/04-09/26 Expected Outcomes/Goals Expected Outcomes/Goals 1. PO intake to meet at least 75% of nutritional needs. 2. Wt stability, skin to remain intact, labs to approach WNL.
[2017-10-10] MEDS: Atorvastatin Calcium 10 MG TAB PO SCH (20:49)
--- NOTE | 2017-10-10 23:11 | Progress Notes ---
DATE: 10/10/2017 Staff was spoken to. The patient was interviewed. Mood is noted to be irritable. Affect is constricted. Coping skills at this time are noted to be very poor. Insight and judgment are also noted to be very poor. The patient's blood pressure has been coming low and hence it is decided to decrease the dose on the Seroquel from 50 mg to 25 mg twice a day and follow the patient with the supportive therapy. [facility]# [id number]
[2017-10-11] MEDS: Nicotine 14 mg/24 hr Tdm TD SCH (08:33)
[2017-10-11] MEDS: Multivitamin Tab PO SCH (08:34)
--- NOTE | 2017-10-11 13:35 | Progress Notes ---
DATE: 10/11/2017 SUBJECTIVE: Staff was spoken to. The patient is interviewed. Mood is noted to be irritable. Affect is constricted. The patient has been disruptive this morning. The patient's blood pressure was coming very low and hence the patient's Seroquel has been changed to ____ twice a day and since then, the patient has been a little bit more disruptive. The patient is given a dose of Ativan to calm him down. ASSESSMENT: The patient is still impulsive. PLAN: To continue the patient with the supportive therapy and encouraged the patient to verbalize the concerns rather than to act out. JOB# [id number]
--- NOTE | 2017-10-11 14:07 | General Progress Note ---
Subjective - Review of Systems Service Date: 10/11/17 Subjective: Patient is awake, confused, not oriented. Objective - Results Result Diagrams: 10/02/17 09:25 10/02/17 09:25 Recent Labs: Laboratory Last Values WBC 6.8 Th/cmm (4.8-10.8) D 10/02/17 09:25 RBC 4.02 Mil/cmm (4.30-5.70) L 10/02/17 09:25 Hgb 12.6 gm/dL (12-16) 10/02/17 09:25 Hct 37.5 % (41.0-60) L D 10/02/17 09:25 MCV 93.2 fl (80-99) 10/02/17 09:25 MCH 31.3 pg (26.0-30.0) H 10/02/17 09:25 MCHC Differential 33.5 pg (28.0-36.0) 10/02/17 09:25 RDW 13.4 % (11.5-20.0) 10/02/17 09:25 Plt Count 205 Th/cmm (150-400) D 10/02/17 09:25 MPV 7.0 fl 10/02/17 09:25 Neutrophils % 66.8 % (40.0-80.0) 10/02/17 09:25 Lymphocytes % 22.6 % (20.0-50.0) 10/02/17 09:25 Monocytes % 8.3 % (2.0-10.0) 10/02/17 09:25 Eosinophils % 1.6 % (0.0-5.0) 10/02/17 09:25 Basophils % 0.7 % (0.0-2.0) 10/02/17 09:25 Sodium 140 mEq/L (136-145) 10/02/17 09:25 Potassium 4.0 mEq/L (3.5-5.1) 10/02/17 09:25 Chloride 104 mEq/L (98-107) 10/02/17 09:25 Carbon Dioxide 29.1 mEq/L (21.0-31.0) 10/02/17 09:25 Anion Gap 10.9 (7.0-16.0) 10/02/17 09:25 BUN 21 mg/dL (7-25) 10/02/17 09:25 Creatinine 0.7 mg/dL (0.7-1.3) 10/02/17 09:25 Est GFR ( Amer) > 60.0 ml/min (>90) 10/02/17 09:25 Est GFR (Non-Af Amer) > 60.0 ml/min 10/02/17 09:25 BUN/Creatinine Ratio 30.0 10/02/17 09:25 Glucose 97 mg/dL (70-105) 10/02/17 09:25 Calcium 9.4 mg/dL (8.6-10.3) 10/02/17 09:25 Total Bilirubin 0.7 mg/dL (0.3-1.0) 10/02/17 09:25 AST 23 U/L (13-39) 10/02/17 09:25 ALT 20 U/L (7-52) 10/02/17 09:25 Alkaline Phosphatase 96 U/L (34-104) 10/02/17 09:25 Ammonia 49 umol/L (16-53) 10/08/17 13:45 Total Protein 6.8 gm/dL (6.0-8.3) 10/02/17 09:25 Albumin 4.0 gm/dL (4.2-5.5) L 10/02/17 09:25 Globulin 2.8 gm/dL 10/02/17 09:25 Albumin/Globulin Ratio 1.4 (1.0-1.8) 10/02/17 09:25 TSH 5.30 uIU/ml (0.34-5.60) 09/25/17 05:22 Valproic Acid 85.4 ug/mL (50.0-100.0) 09/25/17 05:22 - Physical Exam Vitals and I&O: Vital Signs Temp 98 F 10/11/17 06:04 Pulse 68 10/11/17 06:04 Resp 20 10/11/17 06:04 BP 110/72 10/11/17 06:04 Pulse Ox 97 10/11/17 06:04 Intake & Output 10/10/17 10/11/17 10/11/17 18:59 06:59 18:59 Intake Total 480 120 Balance 480 120 Intake: Oral 480 120 Other: # Voids 3 3 # Bowel Movements 1 Active Medications: Current Medications Acetaminophen (Tylenol) 650 mg PO Q4HR PRN PRN Reason: Mild Pain / Temp above 100 Stop: 11/24/17 16:37 Atorvastatin Calcium (Lipitor) 20 mg PO HS [facility] Stop: 11/24/17 20:59 Last Admin: 10/10/17 20:49 Dose: 20 mg Hydroxyzine Pamoate (Vistaril) 25 mg PO Q12HR PRN; Protocol PRN Reason: Anxiety Stop: 12/07/17 20:59 Last Admin: 10/11/17 12:48 Dose: 25 mg Magnesium Hydroxide (Milk Of Magnesia) 30 ml PO HS PRN PRN Reason: Constipation Multivitamins/Vitamin C (Theragran) 1 tab PO DAILY [facility] Stop: 11/25/17 08:59 Last Admin: 10/11/17 08:34 Dose: 1 tab Nicotine (Nicotine Transdermal System) 14 mg TD DAILY [facility] Stop: 11/24/17 13:59 Last Admin: 10/11/17 08:33 Dose: 14 mg Oxcarbazepine (Trileptal) 300 mg PO BID [facility]UAN PRN Reason: Protocol Stop: 11/27/17 08:59 Last Admin: 10/11/17 08:34 Dose: 300 mg Quetiapine Fumarate (Seroquel) 25 mg PO BID [facility]UAN PRN Reason: Protocol Stop: 12/09/17 16:59 Last Admin: 10/11/17 08:34 Dose: 25 mg Tamsulosin HCl (Flomax) 0.4 mg PO DAILY [facility] Stop: 11/24/17 13:59 Last Admin: 10/11/17 08:34 Dose: 0.4 mg Zolpidem Tartrate (Ambien) 5 mg PO HS PRN PRN Reason: Insomnia Stop: 11/24/17 16:37 Last Admin: 10/10/17 20:49 Dose: 5 mg General: Alert, Other (Confused, not oriented) HEENT: Atraumatic Neck: Supple Cardiovascular: Regular rate Lungs: Clear to auscultation Abdomen: Bowel sounds Extremities: Other (No edema) Neurological: Normal gait Skin: Other (warm and dry) Psych/Mental Status: Other (Patient is awake, alert, confused, not oriented) Assessment/Plan - Assessment Assessment: Patient is awake, confused, not following verbal commands. Patient took his meds today. Dx: increased in agitation, Schizophrenia, muscle weakness. - Plan Plan: Patient is under Psychiatric care. Will continue SNF meds. Will continue to monitor. Nutritional Asmnt/Malnutr-PDOC - Dietary Evaluation Malnutrition Findings (Please click <Entered> for more info): Nutritional Asmnt/Malnutrition Start: 10/01/17 15: 02 Text: Status: Complete Freq: Document 10/01/17 15:02 [facility] (Rec: 10/01/17 15:15 [email or web address] Nutritional Asmnt/Malnutrition Patient General Information Nutritional Screening Moderate Risk Diagnosis psychosis Pertinent Medical Hx/Surgical Hx CAD dementia, schizophrenia, weakness Subjective Information Pt seen sitting in [facility] in dining room, at side. Per , pt has no denture/ teeth, would like to do ground diet d/t chewing difficulty on some food. Pt likes banana, scrambled eggs, milkd and cofee, does not eat cereal. Per notes, PO intake 75-100%. Current Diet Order/ Nutrition Support [facility] soft chopped Pertinent Medications theragran, seroquel Pertinent Labs 10/01 Na 138, K 4.3, Cl 110, BUN 26, Cr 1.9, Glucose 90, Ca 8.9, Alb 3.7 Nutritional Hx/Data Height 1.83 m Height (Calculated Centimeters) 182.9 Current Weight (lbs) 99.79 kg Weight (Calculated Kilograms) 99.8 Weight (Calculated Grams) 50818.3 [place] Body Weight 178 % [place] Body Weight 124 Body Mass Index (BMI) 29.8 Weight Status Overweight GI Symptoms GI Symptoms None Last BM none Skin Integrity/Comment: intact Current %PO Good (75-100%) Estimated Nutritional Goals Calories/Kcals/Kg 25-30 Kcals Calculated 2024--2429 based on IBW 81kg Protein g/k.8-1 Protein Calculated 65-81 Fluid: ml 2024--2429 Nutritional Problem No current Nutrition Prob Problem no nutrition problem at this time Malnutrition Alert Protein-Calorie Malnutrition N/A Is there a minimum of two criteria No selected? Query Text:Check all the applicable criteria. A minimum of two criteria are recommended for diagnosis of either severe or non-severe malnutrition. Intervention/Recommendation Comments 1. Recommend [facility] soft ground diet r/t chewing difficulty. RN made aware, will talk to MD . Updated pt diet profile. 2. Monitor PO intake and tolerance, wt weekly, labs and skin integrity 3. F/U as moderate risk in 3-5 days, 10/04-09/26 Expected Outcomes/Goals Expected Outcomes/Goals 1. PO intake to meet at least 75% of nutritional needs. 2. Wt stability, skin to remain intact, labs to approach WNL.
[2017-10-11] MEDS: Atorvastatin Calcium 10 MG TAB PO SCH (20:44)
--- NOTE | 2017-10-12 09:00 | General Progress Note ---
Subjective - Review of Systems Service Date: 10/12/17 Subjective: Patient is awake, confused, not oriented. Objective - Results Result Diagrams: 10/02/17 09:25 10/02/17 09:25 Recent Labs: Laboratory Last Values WBC 6.8 Th/cmm (4.8-10.8) D 10/02/17 09:25 RBC 4.02 Mil/cmm (4.30-5.70) L 10/02/17 09:25 Hgb 12.6 gm/dL (12-16) 10/02/17 09:25 Hct 37.5 % (41.0-60) L D 10/02/17 09:25 MCV 93.2 fl (80-99) 10/02/17 09:25 MCH 31.3 pg (26.0-30.0) H 10/02/17 09:25 MCHC Differential 33.5 pg (28.0-36.0) 10/02/17 09:25 RDW 13.4 % (11.5-20.0) 10/02/17 09:25 Plt Count 205 Th/cmm (150-400) D 10/02/17 09:25 MPV 7.0 fl 10/02/17 09:25 Neutrophils % 66.8 % (40.0-80.0) 10/02/17 09:25 Lymphocytes % 22.6 % (20.0-50.0) 10/02/17 09:25 Monocytes % 8.3 % (2.0-10.0) 10/02/17 09:25 Eosinophils % 1.6 % (0.0-5.0) 10/02/17 09:25 Basophils % 0.7 % (0.0-2.0) 10/02/17 09:25 Sodium 140 mEq/L (136-145) 10/02/17 09:25 Potassium 4.0 mEq/L (3.5-5.1) 10/02/17 09:25 Chloride 104 mEq/L (98-107) 10/02/17 09:25 Carbon Dioxide 29.1 mEq/L (21.0-31.0) 10/02/17 09:25 Anion Gap 10.9 (7.0-16.0) 10/02/17 09:25 BUN 21 mg/dL (7-25) 10/02/17 09:25 Creatinine 0.7 mg/dL (0.7-1.3) 10/02/17 09:25 Est GFR ( Amer) > 60.0 ml/min (>90) 10/02/17 09:25 Est GFR (Non-Af Amer) > 60.0 ml/min 10/02/17 09:25 BUN/Creatinine Ratio 30.0 10/02/17 09:25 Glucose 97 mg/dL (70-105) 10/02/17 09:25 Calcium 9.4 mg/dL (8.6-10.3) 10/02/17 09:25 Total Bilirubin 0.7 mg/dL (0.3-1.0) 10/02/17 09:25 AST 23 U/L (13-39) 10/02/17 09:25 ALT 20 U/L (7-52) 10/02/17 09:25 Alkaline Phosphatase 96 U/L (34-104) 10/02/17 09:25 Ammonia 49 umol/L (16-53) 10/08/17 13:45 Total Protein 6.8 gm/dL (6.0-8.3) 10/02/17 09:25 Albumin 4.0 gm/dL (4.2-5.5) L 10/02/17 09:25 Globulin 2.8 gm/dL 10/02/17 09:25 Albumin/Globulin Ratio 1.4 (1.0-1.8) 10/02/17 09:25 TSH 5.30 uIU/ml (0.34-5.60) 09/25/17 05:22 Valproic Acid 85.4 ug/mL (50.0-100.0) 09/25/17 05:22 - Physical Exam Vitals and I&O: Vital Signs Temp 97.1 F 10/11/17 20:37 Pulse 84 10/11/17 20:37 Resp 19 10/11/17 20:37 BP 92/64 10/11/17 20:37 Pulse Ox 95 10/11/17 20:37 Intake & Output 10/11/17 10/12/17 10/12/17 18:59 06:59 18:59 Intake Total 700 300 Balance 700 300 Intake: Oral 700 300 Other: # Voids 4 2 # Bowel Movements 2 1 Stool Characteristics Soft Formed Active Medications: Current Medications Acetaminophen (Tylenol) 650 mg PO Q4HR PRN PRN Reason: Mild Pain / Temp above 100 Stop: 11/24/17 16:37 Last Admin: 10/12/17 00:52 Dose: 650 mg Atorvastatin Calcium (Lipitor) 20 mg PO HS [facility] Stop: 11/24/17 20:59 Last Admin: 10/11/17 20:44 Dose: 20 mg Hydroxyzine Pamoate (Vistaril) 25 mg PO Q8HR PRN; Protocol PRN Reason: Agitation Stop: 12/10/17 17:58 Last Admin: 10/12/17 00:49 Dose: 25 mg Magnesium Hydroxide (Milk Of Magnesia) 30 ml PO HS PRN PRN Reason: Constipation Multivitamins/Vitamin C (Theragran) 1 tab PO DAILY [facility] Stop: 11/25/17 08:59 Last Admin: 10/11/17 08:34 Dose: 1 tab Nicotine (Nicotine Transdermal System) 14 mg TD DAILY [facility] Stop: 11/24/17 13:59 Last Admin: 10/11/17 08:33 Dose: 14 mg Oxcarbazepine (Trileptal) 300 mg PO BID [facility] PRN Reason: Protocol Stop: 11/27/17 08:59 Last Admin: 10/11/17 18:08 Dose: 300 mg Quetiapine Fumarate (Seroquel) 25 mg PO BID [facility] PRN Reason: Protocol Stop: 12/09/17 16:59 Last Admin: 10/11/17 18:07 Dose: 25 mg Tamsulosin HCl (Flomax) 0.4 mg PO DAILY [facility] Stop: 11/24/17 13:59 Last Admin: 10/11/17 08:34 Dose: 0.4 mg Zolpidem Tartrate (Ambien) 5 mg PO HS PRN PRN Reason: Insomnia Stop: 11/24/17 16:37 Last Admin: 10/12/17 00:49 Dose: 5 mg General: Alert, Other (Confused, not oriented) HEENT: Atraumatic Neck: Supple Cardiovascular: Regular rate Lungs: Clear to auscultation Abdomen: Bowel sounds Extremities: Other (No edema) Neurological: Normal gait Skin: Other (warm and dry) Psych/Mental Status: Other (Patient is awake, alert, confused, not oriented) Assessment/Plan - Assessment Assessment: Patient is awake, confused, not following verbal commands. Patient took his meds today. Dx: increased in agitation, Schizophrenia, muscle weakness. - Plan Plan: Patient is under Psychiatric care. Will continue SNF meds. Will continue to monitor. Nutritional Asmnt/Malnutr-PDOC - Dietary Evaluation Malnutrition Findings (Please click <Entered> for more info): Nutritional Asmnt/Malnutrition Start: 10/01/17 15: 02 Text: Status: Complete Freq: Document 10/01/17 15:02 [facility] (Rec: 10/01/17 15:15 [email or web address] Nutritional Asmnt/Malnutrition Patient General Information Nutritional Screening Moderate Risk Diagnosis psychosis Pertinent Medical Hx/Surgical Hx CAD dementia, schizophrenia, weakness Subjective Information Pt seen sitting in [facility] in dining room, at side. Per , pt has no denture/ teeth, would like to do ground diet d/t chewing difficulty on some food. Pt likes banana, scrambled eggs, milkd and cofee, does not eat cereal. Per notes, PO intake 75-100%. Current Diet Order/ Nutrition Support [facility] soft chopped Pertinent Medications theragran, seroquel Pertinent Labs 10/01 Na 138, K 4.3, Cl 110, BUN 26, Cr 1.9, Glucose 90, Ca 8.9, Alb 3.7 Nutritional Hx/Data Height 1.83 m Height (Calculated Centimeters) 182.9 Current Weight (lbs) 99.79 kg Weight (Calculated Kilograms) 99.8 Weight (Calculated Grams) 40100.3 [place] Body Weight 178 % [place] Body Weight 124 Body Mass Index (BMI) 29.8 Weight Status Overweight GI Symptoms GI Symptoms None Last BM none Skin Integrity/Comment: intact Current %PO Good (75-100%) Estimated Nutritional Goals Calories/Kcals/Kg 25-30 Kcals Calculated 2024--2429 based on IBW 81kg Protein g/k.8-1 Protein Calculated 65-81 Fluid: ml 2024--2429 Nutritional Problem No current Nutrition Prob Problem no nutrition problem at this time Malnutrition Alert Protein-Calorie Malnutrition N/A Is there a minimum of two criteria No selected? Query Text:Check all the applicable criteria. A minimum of two criteria are recommended for diagnosis of either severe or non-severe malnutrition. Intervention/Recommendation Comments 1. Recommend [facility] soft ground diet r/t chewing difficulty. RN made aware, will talk to MD . Updated pt diet profile. 2. Monitor PO intake and tolerance, wt weekly, labs and skin integrity 3. F/U as moderate risk in 3-5 days, 10/04-09/26 Expected Outcomes/Goals Expected Outcomes/Goals 1. PO intake to meet at least 75% of nutritional needs. 2. Wt stability, skin to remain intact, labs to approach WNL.
[2017-10-12] MEDS: Multivitamin Tab PO SCH (09:05)
[2017-10-12] MEDS: Nicotine 14 mg/24 hr Tdm TD SCH (09:06)
--- NOTE | 2017-10-12 13:23 | Progress Notes ---
DATE: 10/12/2017 SUBJECTIVE: Staff was spoken to. The patient is interviewed. Mood is noted to be less irritable. Affect is appropriate. Family is here to visit with the patient. The patient has been getting easily irritable and then once the Seroquel has been increased, the patient's blood pressure came down and hence we have to taper the medication now. The patient's aggressive behavior seems to be under control and the patient is currently on Vistaril and Seroquel. PLAN: To continue the patient with the current medications. I encouraged the patient to verbalize the concerns rather than to act out. JOB# [id number]
[2017-10-12] MEDS: Atorvastatin Calcium 10 MG TAB PO SCH (20:43)
--- NOTE | 2017-10-13 09:21 | General Progress Note ---
Subjective - Review of Systems Service Date: 10/13/17 Subjective: Patient is awake, confused, not oriented. Objective - Results Result Diagrams: 10/02/17 09:25 10/02/17 09:25 Recent Labs: Laboratory Last Values WBC 6.8 Th/cmm (4.8-10.8) D 10/02/17 09:25 RBC 4.02 Mil/cmm (4.30-5.70) L 10/02/17 09:25 Hgb 12.6 gm/dL (12-16) 10/02/17 09:25 Hct 37.5 % (41.0-60) L D 10/02/17 09:25 MCV 93.2 fl (80-99) 10/02/17 09:25 MCH 31.3 pg (26.0-30.0) H 10/02/17 09:25 MCHC Differential 33.5 pg (28.0-36.0) 10/02/17 09:25 RDW 13.4 % (11.5-20.0) 10/02/17 09:25 Plt Count 205 Th/cmm (150-400) D 10/02/17 09:25 MPV 7.0 fl 10/02/17 09:25 Neutrophils % 66.8 % (40.0-80.0) 10/02/17 09:25 Lymphocytes % 22.6 % (20.0-50.0) 10/02/17 09:25 Monocytes % 8.3 % (2.0-10.0) 10/02/17 09:25 Eosinophils % 1.6 % (0.0-5.0) 10/02/17 09:25 Basophils % 0.7 % (0.0-2.0) 10/02/17 09:25 Sodium 140 mEq/L (136-145) 10/02/17 09:25 Potassium 4.0 mEq/L (3.5-5.1) 10/02/17 09:25 Chloride 104 mEq/L (98-107) 10/02/17 09:25 Carbon Dioxide 29.1 mEq/L (21.0-31.0) 10/02/17 09:25 Anion Gap 10.9 (7.0-16.0) 10/02/17 09:25 BUN 21 mg/dL (7-25) 10/02/17 09:25 Creatinine 0.7 mg/dL (0.7-1.3) 10/02/17 09:25 Est GFR ( Amer) > 60.0 ml/min (>90) 10/02/17 09:25 Est GFR (Non-Af Amer) > 60.0 ml/min 10/02/17 09:25 BUN/Creatinine Ratio 30.0 10/02/17 09:25 Glucose 97 mg/dL (70-105) 10/02/17 09:25 Calcium 9.4 mg/dL (8.6-10.3) 10/02/17 09:25 Total Bilirubin 0.7 mg/dL (0.3-1.0) 10/02/17 09:25 AST 23 U/L (13-39) 10/02/17 09:25 ALT 20 U/L (7-52) 10/02/17 09:25 Alkaline Phosphatase 96 U/L (34-104) 10/02/17 09:25 Ammonia 49 umol/L (16-53) 10/08/17 13:45 Total Protein 6.8 gm/dL (6.0-8.3) 10/02/17 09:25 Albumin 4.0 gm/dL (4.2-5.5) L 10/02/17 09:25 Globulin 2.8 gm/dL 10/02/17 09:25 Albumin/Globulin Ratio 1.4 (1.0-1.8) 10/02/17 09:25 TSH 5.30 uIU/ml (0.34-5.60) 09/25/17 05:22 Valproic Acid 85.4 ug/mL (50.0-100.0) 09/25/17 05:22 - Physical Exam Vitals and I&O: Vital Signs Temp 98 F 10/12/17 21:07 Pulse 92 10/12/17 21:07 Resp 20 10/12/17 21:07 BP 114/49 10/12/17 21:07 Pulse Ox 97 10/12/17 21:07 Intake & Output 10/12/17 10/13/17 10/13/17 18:59 06:59 18:59 Intake Total 950 180 Output Total 1 Balance 950 179 Intake: Oral 950 180 Output: Stool 1 Other: # Voids 4 1 # Bowel Movements 1 0 Active Medications: Current Medications Acetaminophen (Tylenol) 650 mg PO Q4HR PRN PRN Reason: Mild Pain / Temp above 100 Stop: 11/24/17 16:37 Last Admin: 10/12/17 00:52 Dose: 650 mg Atorvastatin Calcium (Lipitor) 20 mg PO HS [facility] Stop: 11/24/17 20:59 Last Admin: 10/12/17 20:43 Dose: 20 mg Hydroxyzine Pamoate (Vistaril) 25 mg PO Q8HR PRN; Protocol PRN Reason: Agitation Stop: 12/10/17 17:58 Last Admin: 10/13/17 00:30 Dose: 25 mg Magnesium Hydroxide (Milk Of Magnesia) 30 ml PO HS PRN PRN Reason: Constipation Multivitamins/Vitamin C (Theragran) 1 tab PO DAILY [facility] Stop: 11/25/17 08:59 Last Admin: 10/12/17 09:05 Dose: 1 tab Nicotine (Nicotine Transdermal System) 14 mg TD DAILY [facility] Stop: 11/24/17 13:59 Last Admin: 10/12/17 09:06 Dose: 14 mg Oxcarbazepine (Trileptal) 300 mg PO BID [facility] PRN Reason: Protocol Stop: 11/27/17 08:59 Last Admin: 10/12/17 17:02 Dose: 300 mg Quetiapine Fumarate (Seroquel) 25 mg PO BID [facility] PRN Reason: Protocol Stop: 12/09/17 16:59 Last Admin: 10/12/17 17:02 Dose: 25 mg Tamsulosin HCl (Flomax) 0.4 mg PO DAILY [facility] Stop: 11/24/17 13:59 Last Admin: 10/12/17 09:05 Dose: 0.4 mg Zolpidem Tartrate (Ambien) 5 mg PO HS PRN PRN Reason: Insomnia Stop: 11/24/17 16:37 Last Admin: 10/12/17 20:43 Dose: 5 mg General: Alert, Other (Confused, not oriented) HEENT: Atraumatic Neck: Supple Cardiovascular: Regular rate Lungs: Clear to auscultation Abdomen: Bowel sounds Extremities: Other (No edema) Neurological: Normal gait Skin: Other (warm and dry) Psych/Mental Status: Other (Patient is awake, alert, confused, not oriented) Assessment/Plan - Assessment Assessment: Patient is awake, confused, not following verbal commands. Patient took his meds today. Hep B surf AB and Core ab positive. Dx: increased in agitation, Schizophrenia, muscle weakness. - Plan Plan: Patient is under Psychiatric care. Will continue SNF meds. Will continue to monitor. Nutritional Asmnt/Malnutr-PDOC - Dietary Evaluation Malnutrition Findings (Please click <Entered> for more info): Nutritional Asmnt/Malnutrition Start: 10/01/17 15: 02 Text: Status: Complete Freq: Document 10/01/17 15:02 [facility] (Rec: 10/01/17 15:15 [email or web address]) Nutritional Asmnt/Malnutrition Patient General Information Nutritional Screening Moderate Risk Diagnosis psychosis Pertinent Medical Hx/Surgical Hx CAD dementia, schizophrenia, weakness Subjective Information Pt seen sitting in [facility] in dining room, at side. Per , pt has no denture/ teeth, would like to do ground diet d/t chewing difficulty on some food. Pt likes banana, scrambled eggs, milkd and cofee, does not eat cereal. Per notes, PO intake 75-100%. Current Diet Order/ Nutrition Support [facility] soft chopped Pertinent Medications theragran, seroquel Pertinent Labs 10/01 Na 138, K 4.3, Cl 110, BUN 26, Cr 1.9, Glucose 90, Ca 8.9, Alb 3.7 Nutritional Hx/Data Height 1.83 m Height (Calculated Centimeters) 182.9 Current Weight (lbs) 99.79 kg Weight (Calculated Kilograms) 99.8 Weight (Calculated Grams) 21015.3 [place] Body Weight 178 % [place] Body Weight 124 Body Mass Index (BMI) 29.8 Weight Status Overweight GI Symptoms GI Symptoms None Last BM none Skin Integrity/Comment: intact Current %PO Good (75-100%) Estimated Nutritional Goals Calories/Kcals/Kg 25-30 Kcals Calculated 2024--2429 based on IBW 81kg Protein g/k.8-1 Protein Calculated 65-81 Fluid: ml 2024--2429 Nutritional Problem No current Nutrition Prob Problem no nutrition problem at this time Malnutrition Alert Protein-Calorie Malnutrition N/A Is there a minimum of two criteria No selected? Query Text:Check all the applicable criteria. A minimum of two criteria are recommended for diagnosis of either severe or non-severe malnutrition. Intervention/Recommendation Comments 1. Recommend [facility] soft ground diet r/t chewing difficulty. RN made aware, will talk to MD . Updated pt diet profile. 2. Monitor PO intake and tolerance, wt weekly, labs and skin integrity 3. F/U as moderate risk in 3-5 days, 10/04-09/26 Expected Outcomes/Goals Expected Outcomes/Goals 1. PO intake to meet at least 75% of nutritional needs. 2. Wt stability, skin to remain intact, labs to approach WNL.
[2017-10-13] MEDS: Multivitamin Tab PO SCH (10:51)
[2017-10-13] MEDS: Nicotine 14 mg/24 hr Tdm TD SCH (10:51)
[2017-10-13] MEDS: Atorvastatin Calcium 10 MG TAB PO SCH (20:39)
--- NOTE | 2017-10-14 01:53 | Progress Notes ---
DATE: 10/13/2017 SUBJECTIVE: Staff was spoken to. The patient is interviewed. Mood is noted to be less irritable. Affect is appropriate. The patient's coping skills are noted to be fair at this time. No side effects to the medications are noted. The patient is currently on 25 mg twice a day of the Seroquel and the blood pressure is maintained well. No side effects to the medications are noted. The patient, however, has been able to be redirectable, but the patient has a tendency to get easily agitated whenever he does not get his way. ASSESSMENT: The patient's impulsivity is improving. PLAN: To continue the patient with the supportive therapy. I encouraged the patient to verbalize the concerns rather than to act out. JOB# [id number]
[2017-10-14] MEDS: Multivitamin Tab PO SCH (09:21)
[2017-10-14] MEDS: Nicotine 14 mg/24 hr Tdm TD SCH (09:25)
--- NOTE | 2017-10-14 14:44 | Progress Notes ---
DATE: 10/14/2017 SUBJECTIVE: Staff was spoken to. The patient is interviewed. Mood is noted to be less irritable. Affect is appropriate. Coping skills are noted to be fair today. The patient was anxious this morning and has to be given a dose of the Ativan. No side effects to the medications are noted. ASSESSMENT: The patient is stabilizing, but continues to be confused and demented. PLAN: To continue the patient with the Seroquel and discharge the patient today for followup on outpatient basis. [facility]# [id number]
--- NOTE | 2017-10-30 10:11 | Discharge Summary ---
DATE OF DISCHARGE: 10/14/2017 PSYCHIATRIC DISCHARGE SUMMARY IDENTIFYING DATA: The patient is a 57-year-old male, resident of a snf facility. Information obtained by directly interviewing the patient as well as reviewing the admission papers. JUSTIFICATION OF HOSPITALIZATION: The patient is admitted here for acute agitation and aggressive behavior. DIAGNOSES AT THE TIME OF THE ADMISSION: AXIS I: Psychotic disorder, not otherwise specified, rule out schizoaffective disorder. AXIS II: None. AXIS III: As per Dr. Gael Hodges. HISTORY OF PRESENT ILLNESS: Please refer to the 09/25/2017 dictation done by me. Physical examination was done by Dr. Gael Hodges and is noted to be within normal limits. HOSPITAL COURSE AND RESPONSE TO TREATMENT: The patient has been observed on the inpatient unit and provided with supportive psychotherapy. The patient continues to be aggressive, agitated and has been testing the limits. The patient has been placed on oxcarbazepine 300 mg, which was gradually increased to 300 mg twice a day; quetiapine was given 25 mg twice a day. In view of the patient's injury of the head and surgery, we have been very careful and the patient did not respond to Zyprexa and that has to be discontinued. The patient has been finally stabilized and was discharged to [place] with recommendation that he is going to be followed up by Dr. Medel. MENTAL STATUS EXAMINATION: At the time of the discharge, the patient's mood is noted to be less irritable. Affect is appropriate. Not suicidal or homicidal. Insight and judgment are noted to be improving. Impulse control seems to be fair. No side effects to the medications are noted at the time of the discharge. CONDITION: At the time of the discharge noted to be stable. DIAGNOSES AT THE TIME OF THE DISCHARGE: AXIS I: a. Schizoaffective disorder. b. Dementia and behavioral change, secondary trait. AXIS II: None. AXIS III: As per Dr. Hodges. [facility]# [id number]
== END 2017-10-14 16:40 | DRG 885 ==
LOC: ER 01:57 → GERO 07:08
PROVIDERS: ADMIT Psychiatry & Neurology Psychiatry; ATTEND Psychiatry & Neurology Psychiatry
DX: F29 Unspecified psychosis not due to a substance or known physiological condition (principal); B19.10 Unspecified viral hepatitis B without hepatic coma; F03.91 Unspecified dementia, unspecified severity, with behavioral disturbance; F20.9 Schizophrenia, unspecified; Z66 Do not resuscitate; I25.10 Atherosclerotic heart disease of native coronary artery without angina pectoris; M62.81 Muscle weakness (generalized); R21 Rash and other nonspecific skin eruption; Z79.899 Other long term (current) drug therapy
CPT/HCPCS: 36415-UA; 80048-TC; 80053-TC; 80164-TC; 82140-TC; 84443-TC; 85025-TC; A4216; J1200; J1630; J2060; J3230; J7051; Q0177; Z7610